=== PATIENT | male | born 1945 | race Hispanic/Latino ===

== ENCOUNTER 2019-05-31 15:00 | Inpatient (IN) | payer OTHER ==
[~2019-05-31] VITALS: Ht 177.8 cm; Wt 73.4 kg
[~2019-05-31 15:00] MED LIST: OMEP20TA25 PO
[2019-05-31 16:12] VITALS: BP 152/96
[2019-05-31] MEDS ORDERED: PHARMACY COMMUNICATION MISC SCH (16:15)
[2019-05-31] MEDS ORDERED: FEXO180T94 PO (16:27)
[2019-05-31] MEDS ORDERED: TELM80TA10 PO (16:27)
[2019-05-31] MEDS ORDERED: ACET1TAB18 PO (16:27)
[2019-05-31] MEDS ORDERED: BACL5TAB PO (16:27)
[2019-05-31] MEDS ORDERED: AMLO5TAB9 PO (16:27)
[2019-05-31] MEDS ORDERED: PREG150C46 PO (16:27)
[2019-05-31 16:34] LABS: BASOPHILS % (AUTO) 0.6 % (0.0-5.0); EOSINOPHILS % (AUTO) 1.1 % (0.0-8.0); HEMATOCRIT 47.8 % (42-54); LYMPHOCYTES % (AUTO) 27.7 % (21.0-51.0); MEAN CORPUSCULAR HEMOGLOBIN 31.2 pg (27.0-33.0); MEAN CORPUSCULAR HGB CONC 33.6 g/dL (32.0-36.0); MONOCYTES % (AUTO) 11.1 % (3.0-13.0); NEUTROPHILS % (AUTO) 59.5 % (40.0-77.0); PLATELET COUNT (AUTO) 202 K/uL (130-400); RED BLOOD CELL COUNT(AUTO) 5.14 MIL/uL (4.50-6.20); RED CELL DISTRIBUTION WIDTH 13.9 % (11.0-15.5); WHITE BLOOD COUNT (AUTO) 5.9 K/uL (4.8-10.8)
[2019-05-31 16:45] LABS: INR 0.96 (0.85-1.15); PROTHROMBIN TIME 10.1 SEC (9.6-11.6)
[2019-05-31 16:46] LABS: CREATININE 1.3 mg/dL (0.5-1.5); POTASSIUM 3.9 mmol/L (3.5-5.1)
[2019-05-31 16:48] LABS: APPEARANCE,URINE Clear (CLEAR); BILIRUBIN,URINE Negative (NEGATIVE); COLOR,URINE Yellow (YELLOW); GLUCOSE, URINE (UA) Negative (NEGATIVE); KETONES,URINE Negative (NEGATIVE); LEUKOCYTE ESTERASE ,URINE Negative (NEGATIVE); NITRATE,URINE Negative (NEGATIVE); OCCULT BLOOD,URINE Small (NEGATIVE); PROTEIN,URINE Negative (NEGATIVE)
[2019-05-31 17:05] LABS: BACTERIA,URINE Rare /HPF (None Seen); WBC,URINE 0-1 /HPF (0-1)
[2019-05-31 17:06] LABS: SQUAMOUS EPITHELIAL CELL,UR Rare /HPF (0-2)
--- NOTE | 2019-05-31 18:56 | NUR ---
UA INFORMED DR. BECKER OF ABNORMAL UA. NO ORDERS RECEIVED. PROCEED WITH PLANNED PROCEDURE.
[2019-06-03] VITALS (24 sets, daily range): BP systolic 98–148; BP diastolic 53–87
--- NOTE | 2019-06-03 09:15 | NUR ---
POTENTIAL FOR INFECTION: SHAVED LEFT HIP / LEFT UPPER LEG TO GROIN AREA PER CATHY VELASCO, FOLLOWED BY WIPING WITH MOIRA: 2% CHLORHEXIDINE GLUCONATE CLOTH PATIENTS PRE-OP SKIN PREP.
[2019-06-03] MEDS: CEFAZOLIN SODIUM 1 GM VIAL IVP SCH ×2 (09:30→14:15)
[2019-06-03] MEDS ORDERED: LACTATED RINGERS 1000ML 1,000 ML IV ONE (09:34)
[2019-06-03] MEDS ORDERED: ASPI-555 PO (10:03)
[2019-06-03] MEDS ORDERED: ACETAMINOPHEN EXTRA STRENGTH 500 MG TABLET ONE (13:02)
[2019-06-03] MEDS ORDERED: CELECOXIB 200 MG CAP ONE (13:02)
[2019-06-03] MEDS ORDERED: KETOROLAC TROMETHAMINE 15MG/ML ONE (13:02)
[2019-06-03] MEDS ORDERED: ROCURONIUM 10MG/1ML SYR 10 MG/ML ML ONE ×2 (13:46→15:11)
[2019-06-03] MEDS ORDERED: LIDOCAINE PF 2% 5ML ABBOJECT ONE (13:46)
[2019-06-03] MEDS ORDERED: PROPOFOL 10 MG/ML 20ML VIAL IV ONE (13:46)
[2019-06-03] MEDS ORDERED: MIDAZOLAM HCL 1 MG/ML 2ML VIAL ONE (13:46)
[2019-06-03] MEDS ORDERED: FENTANYL CITRATE PF 50 MCG/1 ML 5ML AMP IV ONE (13:46)
[2019-06-03] MEDS ORDERED: ROPIVACAINE 0.5% 5MG/ML 30ML IJ ONE (13:49)
[2019-06-03] MEDS ORDERED: EPHEDRINE SULFATE 50 MG/ML AMPULE ONE (13:57)
[2019-06-03] MEDS ORDERED: CEFAZOLIN SODIUM 1 GM VIAL ONE ×2 (13:58→19:12)
[2019-06-03] MEDS ORDERED: TRANEXAMIC ACID 1000MG/10ML ONE (13:58)
[2019-06-03] MEDS ORDERED: HETASTARCH IN 0.9 % NACL 500 ML IV ONE (14:14)
[2019-06-03] MEDS ORDERED: GLYCOPYRROLATE 1 MG/5 ML SYRINGE ONE (18:04)
[2019-06-03] MEDS ORDERED: NEOSTIGMINE 5MG/5ML SYR IV ONE (18:04)
[2019-06-03] MEDS ORDERED: LIDOCAINE HCL-MPF 1% 2ML VIAL IV PRN (19:00)
[2019-06-03] MEDS ORDERED: DiphenhydrAMINE HCL 50 MG/ML VIAL IVP PRN (19:00)
[2019-06-03] MEDS ORDERED: POTASSIUM CHLORIDE 20MEQ/100ML 100 ML IV PRN (19:00)
[2019-06-03] MEDS: ACETAMINOPHEN EXTRA STRENGTH 500 MG TABLET PO SCH (19:00)
[2019-06-03] MEDS ORDERED: CALCIUM CARBONATE 500 MG TABLET PO PRN (19:00)
[2019-06-03] MEDS ORDERED: POTASSIUM CHLORIDE 20 MEQ ERTAB PO PRN (19:00)
[2019-06-03] MEDS ORDERED: POTASSIUM CHLORIDE 10% ELIXIR 20 MEQ/15 ML UDCUP PO PRN (19:00)
[2019-06-03] MEDS ORDERED: TEMAZEPAM 15 MG CAPSULE PO PRN (19:00)
[2019-06-03] MEDS ORDERED: FERROUS FUMARATE 324 MG TABLET PO PRN (19:00)
[2019-06-03] MEDS ORDERED: ONDANSETRON HCL 4 MG/2 ML VIAL IVP PRN (19:00)
[2019-06-03] MEDS ORDERED: MEPERIDINE-PF 25 MG/ML SYG ONE (19:35)
[2019-06-03] MEDS: SODIUM CHLORIDE 0.9% 1000ML 1,000 ML IV SCH (20:44)
[2019-06-03] MEDS: FAMOTIDINE 20MG TAB 20 MG TAB PO SCH (20:47)
[2019-06-03] MEDS: CELECOXIB 200 MG CAP PO SCH (20:47)
[2019-06-03] MEDS: OXYCODONE HCL 5 MG TAB PO PRN (20:48)
[2019-06-03] MEDS: PREGABALIN 75 MG CAPSULE PO SCH (20:48)
[2019-06-03] MEDS: KETOROLAC TROMETHAMINE 15MG/ML IV PRN (21:47)
[2019-06-04 00:04] VITALS: BP 118/74
[2019-06-04] MEDS: CEFAZOLIN SODIUM 1 GM VIAL IVP SCH ×3 (03:22→19:45)
[2019-06-04] MEDS: ACETAMINOPHEN EXTRA STRENGTH 500 MG TABLET PO SCH ×3 (03:23→19:49)
[2019-06-04] MEDS: OXYCODONE HCL 5 MG TAB PO PRN ×5 (03:41→23:44)
--- NOTE | 2019-06-04 03:42 | NUR ---
DANGLE PATIENT ASSISTED TO EDGE OF BED TO DANGLE LEGS PER MD ORDER.
[2019-06-04 04:03] VITALS: BP 121/71
[2019-06-04 04:15] LABS: HEMATOCRIT 34.7 % (42-54); MEAN CORPUSCULAR HEMOGLOBIN 31.6 pg (27.0-33.0); MEAN CORPUSCULAR HGB CONC 34.2 g/dL (32.0-36.0); MEAN CORPUSCULAR VOLUME 92.4 fL (79-99); PLATELET COUNT (AUTO) 144 K/uL (130-400); RED BLOOD CELL COUNT(AUTO) 3.75 MIL/uL (4.50-6.20); RED CELL DISTRIBUTION WIDTH 13.9 % (11.0-15.5); WHITE BLOOD COUNT (AUTO) 5.8 K/uL (4.8-10.8)
[2019-06-04 04:32] LABS: CREATININE 1.1 mg/dL (0.5-1.5); POTASSIUM 4.1 mmol/L (3.5-5.1)
[2019-06-04] MEDS: SODIUM CHLORIDE 0.9% 1000ML 1,000 ML IV SCH ×2 (04:47→14:14)
[2019-06-04 07:53] VITALS: BP 127/83
[2019-06-04] MEDS: CHLORPHENIRAMINE PO SCH (09:00)
[2019-06-04] MEDS: [UNRECOGNIZED DRUG - OTHER] PO SCH (09:00)
[2019-06-04] MEDS: ACETAMINOPHEN PO SCH (09:00)
[2019-06-04] MEDS: FAMOTIDINE 20MG TAB 20 MG TAB PO SCH ×2 (09:19→19:49)
[2019-06-04] MEDS: POLYETHYLENE GLYCOL 3350 17 GM POWD.PACK PO SCH (09:19)
[2019-06-04] MEDS: LOSARTAN 100 MG TABLET PO SCH (09:19)
[2019-06-04] MEDS: CELECOXIB 200 MG CAP PO SCH ×2 (09:20→19:49)
[2019-06-04] MEDS: AMLODIPINE BESYLATE 5 MG TAB PO SCH (09:20)
[2019-06-04] MEDS: PANTOPRAZOLE SODIUM 40 MG TABLET.DR PO SCH (09:20)
[2019-06-04] MEDS: TAMSULOSIN HCL 0.4 MG CAP.ER.24H PO SCH (09:20)
[2019-06-04] MEDS: APIXABAN 5 MG TABLET PO SCH ×2 (09:20→19:49)
[2019-06-04] MEDS: BACLOFEN 10 MG TABLET PO SCH (09:20)
[2019-06-04] MEDS: CETIRIZINE HCL 5 MG TABLET PO SCH (09:21)
--- NOTE | 2019-06-04 10:00 | NUR ---
0949 had pt sign IM Letter.Faxed to [phone] and placed in chart under consent tab.
--- NOTE | 2019-06-04 10:00 | NUR ---
DCP CM met w/pt discussed DC plan. Pt is independent prior to surgery, lives at home alone, sister Luz Marina lives close by. Pt has a standard walker no wheels, shower chair. Denies any other equipments/services. Pt agreeable for short term placement rehab, ANGELINE signed for [facility]. DC plan to SNF. Faxed order, clinicals, PT, and PASRR, confirmation received. Spoke to Hillary w/[facility], will come eval pt. Pt pending ins auth and acceptance. Primary nurse aware. CM to cont to follow up. Addendum: 06/04/19 at 1057 by ABHIJIT MCDONALD LVN CM Amended: Links added.
[2019-06-04] MEDS: KETOROLAC TROMETHAMINE 15MG/ML IV PRN (10:31)
[2019-06-04 11:17] VITALS: BP 115/73
[2019-06-04] MEDS: TRAMADOL HCL 50 MG TABLET PO PRN (12:46)
[2019-06-04 16:19] VITALS: BP 141/80
[2019-06-04] MEDS: PREGABALIN 75 MG CAPSULE PO SCH (19:49)
[2019-06-04 20:06] VITALS: BP 137/85
[2019-06-05 00:06] VITALS: BP 92/63
[2019-06-05] MEDS: OXYCODONE HCL 5 MG TAB PO PRN ×3 (03:56→15:45)
[2019-06-05] MEDS: ACETAMINOPHEN EXTRA STRENGTH 500 MG TABLET PO SCH ×2 (03:56→10:13)
[2019-06-05] MEDS: CEFAZOLIN SODIUM 1 GM VIAL IVP SCH ×2 (03:58→12:00)
[2019-06-05 04:06] VITALS: BP 102/65
[2019-06-05 07:58] VITALS: BP 117/70
[2019-06-05] MEDS: ACETAMINOPHEN PO SCH (09:00)
[2019-06-05] MEDS: AMLODIPINE BESYLATE 5 MG TAB PO SCH (09:00)
[2019-06-05] MEDS: [UNRECOGNIZED DRUG - OTHER] PO SCH (09:00)
[2019-06-05] MEDS: CHLORPHENIRAMINE PO SCH (09:00)
--- NOTE | 2019-06-05 10:00 | NUR ---
CM Note: [facility] ins auth CM spoke to Hillary w/[facility], pt has ins auth. Pt safe to transfer via [facility] transport van. Primary nurse aware. CM to cont to follow up.
[2019-06-05] MEDS: LOSARTAN 100 MG TABLET PO SCH (10:05)
[2019-06-05] MEDS: CELECOXIB 200 MG CAP PO SCH (10:05)
[2019-06-05] MEDS: PANTOPRAZOLE SODIUM 40 MG TABLET.DR PO SCH (10:05)
[2019-06-05] MEDS: CETIRIZINE HCL 5 MG TABLET PO SCH (10:06)
[2019-06-05] MEDS: APIXABAN 5 MG TABLET PO SCH (10:06)
[2019-06-05] MEDS: TAMSULOSIN HCL 0.4 MG CAP.ER.24H PO SCH (10:06)
[2019-06-05] MEDS: FAMOTIDINE 20MG TAB 20 MG TAB PO SCH (10:07)
[2019-06-05] MEDS: POLYETHYLENE GLYCOL 3350 17 GM POWD.PACK PO SCH (10:08)
[2019-06-05] MEDS: BACLOFEN 10 MG TABLET PO SCH (10:12)
[2019-06-05 11:22] VITALS: BP 111/74
--- NOTE | 2019-06-05 12:10 | NUR ---
DR. BECKER CALLED MD TO INFORM PATIENT HAS BEEN ACCEPTED TO [facility]. NO ANSWER AT THIS TIME. WILL TRY TO CALL AGAIN LATER.
[2019-06-05] MEDS: TRAMADOL HCL 50 MG TABLET PO PRN (12:47)
[2019-06-05] MEDS ORDERED: APIX5TAB PO (14:47)
[2019-06-05] MEDS ORDERED: HYDR-4457 PO (14:47)
[2019-06-05 15:57] VITALS: BP 122/75
--- NOTE | 2019-06-05 16:35 | NUR ---
REPORT GIVEN TO [facility] STAFF NURSE AT 1635 PATIENT IS READY FOR MANAGER OF DATA BT SNF VAN, CHART COPY. MEDICATIONS RECONCILED SENT VIA FAX TO [facility]SING [facility] , FIDEL DRESSING CHANGED SECURED AND GREEN LIGHT FLASHING , DRESSING DUE TO BE CHANGE ON 06/10/19 RECEIVING NURSE AND PATIENT INSTRUCTED ON DRESSING CHANGE , FOLLOW-UP APPOINTMENT AND MEDICATION ( ELQUIS AND NARCO) WEIGHT BEARING TOLERATED WITH WALKER , MEDICATED FOR PAIN SCORE OF 4 PRIOR TO DISCHARGE . IV REMOVE WITH CATHETER INTACT AND SITE DRESSED. NO QUESTION OR CONCERN AT THIS TIME COPY OF DR BECKER GIVEN TO PATIENT AND NEW SCRIPT PLACE IN CHART COPY AND [facility] NURSE MADE AWARE. PATIENT WAITING FOR MANAGER OF DATA SISTER IN ROOM
[2019-06-06] MEDS ORDERED: BISACODYL 10 MG SUPP.RECT RC PRN (19:00)
== END 2019-06-05 17:44 | DRG 470 ==
LOC: EDSTATUS 15:00 → DAHIP 06-03 08:10 → 4AH 06-03 20:05
PROVIDERS: ADMIT Orthopaedic Surgery; ATTEND Orthopaedic Surgery
PROC: 0SRB0JZ Replacement of Left Hip Joint with Synthetic Substitute, Open Approach (ICD-10-PCS; principal; 2019-06-03 13:45)
PROC: 3E0T3BZ Introduction of Anesthetic Agent into Peripheral Nerves and Plexi, Percutaneous Approach (ICD-10-PCS; 2019-06-03 13:45)
DX: M87.852 Other osteonecrosis, left femur (principal); G89.29 Other chronic pain; D64.9 Anemia, unspecified; K40.90 Unilateral inguinal hernia, without obstruction or gangrene, not specified as recurrent; K57.90 Diverticulosis of intestine, part unspecified, without perforation or abscess without bleeding; I25.10 Atherosclerotic heart disease of native coronary artery without angina pectoris; R26.9 Unspecified abnormalities of gait and mobility; M21.70 Unequal limb length (acquired), unspecified site; K21.9 Gastro-esophageal reflux disease without esophagitis; N28.1 Cyst of kidney, acquired; M43.10 Spondylolisthesis, site unspecified; I10 Essential (primary) hypertension; Z82.49 Family history of ischemic heart disease and other diseases of the circulatory system; Z88.8 Allergy status to other drugs, medicaments and biological substances
CPT/HCPCS: 36415; 73503; 80048; 81001; 85025; 85027; 85610; 87641; 88304; 88311; 96374; 97039; C1776; G0378; J0690; J1885; J2001; J2175; J2250; J2704; J2710; J2795; J3010; J3490; J7030; J7120

== ENCOUNTER 2019-11-14 07:04 | Observation (INO) | payer OTHER ==
[2019-11-12 11:30] LABS: BASOPHILS % (AUTO) 0.6 % (0.0-5.0); EOSINOPHILS % (AUTO) 1.7 % (0.0-8.0); HEMATOCRIT 45.8 % (42-54); LYMPHOCYTES % (AUTO) 25.9 % (21.0-51.0); MEAN CORPUSCULAR HEMOGLOBIN 30.4 pg (27.0-33.0); MEAN CORPUSCULAR HGB CONC 33.6 g/dL (32.0-36.0); MEAN CORPUSCULAR VOLUME 90.3 fL (79-99); MONOCYTES % (AUTO) 10.2 % (3.0-13.0); NEUTROPHILS % (AUTO) 61.4 % (40.0-77.0); PLATELET COUNT (AUTO) 203 K/uL (130-400); RED BLOOD CELL COUNT(AUTO) 5.07 MIL/uL (4.50-6.20); RED CELL DISTRIBUTION WIDTH 13.8 % (11.0-15.5); WHITE BLOOD COUNT (AUTO) 4.8 K/uL (4.8-10.8)
[2019-11-12 11:32] LABS: APPEARANCE,URINE Clear (CLEAR); BILIRUBIN,URINE Negative (NEGATIVE); COLOR,URINE Yellow (YELLOW); GLUCOSE, URINE (UA) Negative (NEGATIVE); KETONES,URINE Negative (NEGATIVE); LEUKOCYTE ESTERASE ,URINE Trace (NEGATIVE); NITRATE,URINE Negative (NEGATIVE); OCCULT BLOOD,URINE Negative (NEGATIVE); PROTEIN,URINE Negative (NEGATIVE)
[2019-11-12 11:37] LABS: CREATININE 1.2 mg/dL (0.5-1.5); POTASSIUM 3.8 mmol/L (3.5-5.1)
[2019-11-12 11:53] LABS: INR 0.96 (0.85-1.15); PROTHROMBIN TIME 10.4 SEC (9.6-11.6)
[2019-11-12 12:31] LABS: BACTERIA,URINE Rare /HPF (None Seen); RBC,URINE 0-1 /HPF (0-1); SQUAMOUS EPITHELIAL CELL,UR Rare /HPF (0-2); WBC,URINE 0-1 /HPF (0-1)
[2019-11-12 14:55] VITALS: BP 151/80
--- NOTE | 2019-11-12 18:09 | NUR ---
UA INFORMED / EUGENIO OF ABNORMAL UA. ORDERS RECEIVED TO SEND URINE FOR CULTURE AND WILL REVIEW RESULTS ON AM OF PROCEDURE.
[2019-11-14] VITALS (22 sets, daily range): BP systolic 117–151; BP diastolic 64–100
[~2019-11-14] VITALS: Ht 179.1 cm; Wt 72.9 kg
[~2019-11-14 07:04] MED LIST changes: +ACET1TAB18 PO; +ACET325T51 PO; +AEC81 PO; +ALLEGRA PO; +AMLO5TAB9 PO; +CHOL100018 PO; +HYDR-4457 PO; +TELM80TA10 PO; +TRAZ-185 PO; +VITA100C24 PO; +VITAMIN B12 PO
[2019-11-14] MEDS ORDERED: LACTATED RINGERS 1000ML 1,000 ML IV ONE (07:40)
[2019-11-14] MEDS ORDERED: KETOROLAC TROMETHAMINE 15MG/ML ONE (08:10)
[2019-11-14] MEDS ORDERED: ACETAMINOPHEN EXTRA STRENGTH 500 MG TABLET ONE (08:10)
[2019-11-14] MEDS ORDERED: CELECOXIB 200 MG CAP ONE (08:11)
[2019-11-14] MEDS: CEFAZOLIN SODIUM 1 GM VIAL IVP ONE ×2 (08:17→10:52)
--- NOTE | 2019-11-14 08:44 | NUR ---
POTENTIAL FOR INFECTION: CLIPPED RIGHT HIP TO RT UPPER LEG AND GROIN AREA PER CATHY VELASCO, FOLLOWED BY WIPING WITH MOIRA: 2% CHLORHEXIDINE GLUCONATE CLOTH PATIENTS PRE-OP SKIN PREP.
[2019-11-14] MEDS ORDERED: CEFAZOLIN SODIUM 1 GM VIAL ONE (10:14)
[2019-11-14] MEDS ORDERED: TRANEXAMIC ACID 1000MG/10ML ONE ×2 (10:14→13:57)
[2019-11-14] MEDS ORDERED: MIDAZOLAM HCL 1 MG/ML 2ML VIAL ONE (10:19)
[2019-11-14] MEDS ORDERED: SUCCINYLCHOLINE 200MG/10ML SYR ONE (10:21)
[2019-11-14] MEDS ORDERED: PROPOFOL 10 MG/ML 20ML VIAL IV ONE (10:21)
[2019-11-14] MEDS ORDERED: ROCURONIUM 10MG/1ML SYR 10 MG/ML ML ONE ×3 (10:21→12:40)
[2019-11-14] MEDS ORDERED: ROPIVACAINE 0.5% 5MG/ML 30ML IJ ONE (10:41)
[2019-11-14] MEDS ORDERED: FENTANYL CITRATE PF 50 MCG/1 ML 2ML VIAL ONE (11:38)
[2019-11-14] MEDS ORDERED: CEFAZOLIN SODIUM 1 GM VIAL IRRIG ONE (11:41)
[2019-11-14] MEDS ORDERED: GLYCOPYRROLATE 1 MG/5 ML SYRINGE ONE (12:23)
[2019-11-14] MEDS ORDERED: NEOSTIGMINE 5MG/5ML SYR IV ONE (12:23)
[2019-11-14] MEDS ORDERED: ONDANSETRON HCL 4 MG/2 ML VIAL ONE (12:24)
[2019-11-14] MEDS ORDERED: DEXAMETHASONE SOD PHOSPHATE 10MG/ML 1ML VIAL ONE (12:24)
[2019-11-14] MEDS ORDERED: PHENYLEPHRINE HCL 10 MG/ML 1ML VIAL IV ONE (12:35)
[2019-11-14] MEDS ORDERED: POTASSIUM CHLORIDE 20MEQ/100ML 100 ML IV PRN (13:45)
[2019-11-14] MEDS ORDERED: CALCIUM CARBONATE 500 MG TABLET PO PRN (13:45)
[2019-11-14] MEDS ORDERED: ONDANSETRON HCL 4 MG/2 ML VIAL IVP PRN (13:45)
[2019-11-14] MEDS ORDERED: FERROUS FUMARATE 324 MG TABLET PO PRN (13:45)
[2019-11-14] MEDS ORDERED: TRAMADOL HCL 50 MG TABLET PO PRN (13:45)
[2019-11-14] MEDS ORDERED: POTASSIUM CHLORIDE 20 MEQ ERTAB PO PRN (13:45)
[2019-11-14] MEDS ORDERED: KETOROLAC TROMETHAMINE 15MG/ML IV PRN (13:45)
[2019-11-14] MEDS ORDERED: POTASSIUM CHLORIDE 10% ELIXIR 20 MEQ/15 ML UDCUP PO PRN (13:45)
[2019-11-14] MEDS ORDERED: LIDOCAINE HCL-MPF 1% 2ML VIAL IV PRN (13:45)
[2019-11-14] MEDS ORDERED: OXYCODONE HCL 5 MG TAB PO PRN (13:45)
[2019-11-14] MEDS ORDERED: DiphenhydrAMINE HCL 50 MG/ML VIAL IVP PRN (13:45)
[2019-11-14] MEDS ORDERED: MEPERIDINE-PF 25 MG/ML SYG ONE (14:17)
[2019-11-14] MEDS: SODIUM CHLORIDE 0.9% 1000ML 1,000 ML IV SCH ×2 (15:50→23:15)
[2019-11-14] MEDS: ACETAMINOPHEN EXTRA STRENGTH 500 MG TABLET PO SCH ×2 (15:51→22:00)
[2019-11-14] MEDS: OXYCODONE HCL 5 MG TAB PO PRN ×2 (15:52→23:27)
[2019-11-14] MEDS ORDERED: TRAZODONE HCL 50 MG TAB PO PRN (16:30)
--- NOTE | 2019-11-14 16:40 | NUR ---
DC PLAN VISITED WITH PATIENT. PATIENT LIVES ALONE. SISTER WILL BE HELPING AT HOME. PATIENT HAS WALKER AND BEDSIDE COMMODE. RECEIVES MEALS ON WHEELS. PATIENT WOULD LIKE [facility] INFO SENT TO [facility]) PENDING PT NOTES. Addendum: 11/14/19 at 1641 by CHARLIE CHAMPION RN CM Amended: Links added.
--- NOTE | 2019-11-14 17:18 | NUR ---
PT YELENAD AT BEDSIDE AND THEN I STOOD HIM FOR 1 MINUTE HE TOLERATED WELL, NO DIZZYNESS; HE WAS ABLE TO URINATE 200CC IN URINAL; THEN HELPED BACK TO BED.
[2019-11-14] MEDS: CEFAZOLIN SODIUM 1 GM VIAL IVP SCH (18:57)
[2019-11-14] MEDS: PREGABALIN 25 MG CAP PO SCH (19:44)
[2019-11-14] MEDS: ASPIRIN 81MG TAB.CHEW PO SCH (19:45)
[2019-11-14] MEDS: CELECOXIB 200 MG CAP PO SCH (19:45)
[2019-11-14] MEDS: HYDROMORPHONE 1 MG/1 ML AMP IVP PRN (22:00)
[2019-11-15] MEDS: HYDROMORPHONE 1 MG/1 ML AMP IVP PRN ×2 (03:06→04:50)
[2019-11-15] MEDS: CEFAZOLIN SODIUM 1 GM VIAL IVP SCH (03:06)
[2019-11-15 04:00] VITALS: BP 131/76
[2019-11-15 04:35] LABS: HEMATOCRIT 35.1 % (42-54); MEAN CORPUSCULAR HEMOGLOBIN 29.7 pg (27.0-33.0); MEAN CORPUSCULAR HGB CONC 32.8 g/dL (32.0-36.0); MEAN CORPUSCULAR VOLUME 90.7 fL (79-99); RED BLOOD CELL COUNT(AUTO) 3.87 MIL/uL (4.50-6.20); RED CELL DISTRIBUTION WIDTH 13.7 % (11.0-15.5); WHITE BLOOD COUNT (AUTO) 8.1 K/uL (4.8-10.8)
[2019-11-15 04:46] LABS: CREATININE 1.3 mg/dL (0.5-1.5); POTASSIUM 4.4 mmol/L (3.5-5.1)
[2019-11-15] MEDS: ACETAMINOPHEN EXTRA STRENGTH 500 MG TABLET PO SCH ×2 (04:50→13:58)
[2019-11-15 08:29] VITALS: BP 127/70
[2019-11-15] MEDS: CELECOXIB 200 MG CAP PO SCH (08:41)
[2019-11-15] MEDS: ASPIRIN 81MG TAB.CHEW PO SCH (08:42)
[2019-11-15] MEDS: PREGABALIN 25 MG CAP PO SCH (08:42)
[2019-11-15] MEDS ORDERED: PANTOPRAZOLE SODIUM 40 MG TABLET.DR PO SCH (09:00)
[2019-11-15] MEDS ORDERED: CYANOCOBALAMIN (VITAMIN B-12) 1,000 MCG TABLET PO SCH (09:00)
[2019-11-15] MEDS ORDERED: CETIRIZINE HCL 5 MG TABLET PO SCH (09:00)
[2019-11-15] MEDS ORDERED: AMLODIPINE BESYLATE 5 MG TAB PO SCH (09:00)
[2019-11-15] MEDS ORDERED: POLYETHYLENE GLYCOL 3350 17 GM POWD.PACK PO SCH (09:00)
[2019-11-15] MEDS ORDERED: [UNRECOGNIZED DRUG - OTHER] PO SCH (09:00)
[2019-11-15] MEDS ORDERED: **HM**(Cholecalciferol (Vitamin D3) (Vitamin D3) 25 MCG PO SCH (09:00)
[2019-11-15] MEDS ORDERED: CHLORPHENIRAMINE PO SCH (09:00)
[2019-11-15] MEDS ORDERED: ACETAMINOPHEN PO SCH (09:00)
[2019-11-15] MEDS ORDERED: LOSARTAN 100 MG TABLET PO SCH (09:00)
[2019-11-15] MEDS: OXYCODONE HCL 5 MG TAB PO PRN (09:28)
[2019-11-15 11:26] VITALS: BP 114/71
[2019-11-15] MEDS ORDERED: AEC81 PO (11:57)
[2019-11-15] MEDS ORDERED: HYDR-4457 PO (11:57)
--- NOTE | 2019-11-15 15:15 | NUR ---
INSTRUCTIONS DISCHARGE INSTRUCTIONS GIVEN TO PATIENT USING TEACH BACK. F/U APPOINTMENT WILL BE MADE BY PATIENT ON MONDAY DUE TO OFFICE BEING CLOSED TODAY. NEW PRESCRIPTIONS HAVE BEEN PLACED IN PACKET ALONG WITH ALL PRINTED INFORMATION AND MD INSTRUCTIONS. FIDEL DRESSING LEFT ALONE PER DR. BECKER. IT WILL BE REMOVED NEXT WEEK BY HOME HEALTH NURSE. REPORT HAS BEEN CALLED TO CHENG LEIVA AT [facility]. IV WAS REMOVED WITH TIP INTACT. DIRECT PRESSURE APPLIED UNTIL BLEEDING CONTROLLED THEN SITE COVERED WITH GAUZE AND SECURED WITH TAPE. NO QUESTIONS OR CONCERNS VOICED. PENDING RIDE HOME.
--- NOTE | 2019-11-15 15:44 | NUR ---
[facility] CALLED SAID THAT PATIENT IS ACCEPTED. LET NURSE AND MD KNOW. PATIENT ALREADY HAS EQUIPMENT AT HOME. Addendum: 11/15/19 at 1545 by CHARLIE CHAMPION RN CM Amended: Links added.
[2019-11-17] MEDS ORDERED: BISACODYL 10 MG SUPP.RECT RC PRN (13:45)
== END 2019-11-15 16:10 | disposition home health service (06) ==
LOC: DAH 07:04 → DAHIP 07:05 → 3DH 14:38
PROVIDERS: ADMIT Orthopaedic Surgery; ATTEND Orthopaedic Surgery
DX: M87.051 Idiopathic aseptic necrosis of right femur (principal); D64.9 Anemia, unspecified; N40.0 Benign prostatic hyperplasia without lower urinary tract symptoms; I10 Essential (primary) hypertension; Z96.642 Presence of left artificial hip joint; Z79.01 Long term (current) use of anticoagulants; K21.9 Gastro-esophageal reflux disease without esophagitis; G89.29 Other chronic pain
CPT/HCPCS: 27130; 36415 ×2; 64447; 73503; 80048 ×2; 81001; 85025; 85027; 85610; 86850; 86900; 86901; 87088; 87641; 93005; 96374; 96375; 96376; 97039 ×4; 97116; 97161; 97530; A4213; A4215; A4221; A4222; A4223; A4510; A4649 ×5; A4663; A4930; A5120; A9272; C1776; G0378 ×18; G8978; G8979; G8980; G8981; G8982; G8983; J0330; J0690 ×5; J1100; J1170 ×4; J1885 ×2; J2175; J2250; J2370; J2405 ×2; J2704; J2710; J2795; J3010; J3490 ×3; J7120

== ENCOUNTER 2023-05-15 08:08 | Emergency (ER) | payer MEDICARE, OTHER ==
[~2023-05-15] VITALS: Ht 177.8 cm; Wt 78.5 kg
[~2023-05-15 08:08] MED LIST changes: +AMLO-257 PO; -AMLO5TAB9 PO; +CHOL-34 PO; -CHOL100018 PO; +OMEP20TA20 PO; -OMEP20TA25 PO; -VITA100C24 PO; +VITA100C26 PO
[2023-05-15] MEDS ORDERED: ASPIRIN 325MG TAB PO ONE (09:00)
[2023-05-15] MEDS ORDERED: ACETAMINOPHEN 500 MG TABLET PO ONE (09:00)
[2023-05-15 09:08] LABS: BASOPHILS # (AUTO) 0.02 K/uL (0.00-0.20); BASOPHILS % (AUTO) 0.5 % (0.0-5.0); EOSINOPHILS # (AUTO) 0.14 K/uL (0.00-0.70); EOSINOPHILS % (AUTO) 3.6 % (0.0-8.0); HEMATOCRIT 46.2 % (42-54); IMMATURE GRANULOCYTE ABSOLUTE 0.03 K/uL (0-1); LYMPHOCYTES # (AUTO) 1.1 K/uL (1.0-4.8); LYMPHOCYTES % (AUTO) 27.3 % (21.0-51.0); MEAN CORPUSCULAR HGB CONC 32.3 g/dL (32.0-36.0); MEAN CORPUSCULAR VOLUME 83.8 fL (79-99); MONOCYTES # (AUTO) 0.4 K/uL (0.1-1.0); MONOCYTES % (AUTO) 9.4 % (3.0-13.0); NEUTROPHILS # (AUTO) 2.3 K/uL (1.8-7.7); NEUTROPHILS % (AUTO) 58.4 % (40.0-77.0); PLATELET COUNT (AUTO) 189 K/uL (130-400); RED BLOOD CELL COUNT(AUTO) 5.51 MIL/uL (4.50-6.20); RED CELL DISTRIBUTION WIDTH 15.5 % (11.0-15.5); WHITE BLOOD COUNT (AUTO) 3.9 K/uL (4.8-10.8)
[2023-05-15 09:33] LABS: CREATININE 1.5 mg/dL (0.5-1.5); POTASSIUM 3.5 mmol/L (3.5-5.1)
[2023-05-15] MEDS ORDERED: NAPR-1192 PO (11:02)
[2023-05-15 11:22] VITALS: BP 167/70; PULSE 76; RESP 18; O2SAT 99
== END 2023-05-15 11:29 | disposition home or self-care (01) ==
LOC: EDH 08:08
DX: R07.89 Other chest pain (principal); I10 Essential (primary) hypertension; K21.9 Gastro-esophageal reflux disease without esophagitis; Z79.82 Long term (current) use of aspirin; Z79.899 Other long term (current) drug therapy; Z98.890 Other specified postprocedural states; Z88.8 Allergy status to other drugs, medicaments and biological substances
CPT/HCPCS: 36415; 71046; 80048; 82550; 84484; 85025; 85378; 93005

== ENCOUNTER 2023-08-26 06:31 | Emergency (ER) | payer MEDICARE ==
[~2023-08-26] VITALS: Ht 177.8 cm; Wt 76.7 kg
[~2023-08-26 06:31] MED LIST changes: +NAPR-1192 PO
[2023-08-26 07:41] LABS: HEMATOCRIT 45.7 % (42-54); MEAN CORPUSCULAR HEMOGLOBIN 28.8 pg (27.0-33.0); MEAN CORPUSCULAR HGB CONC 33.9 g/dL (32.0-36.0); MEAN CORPUSCULAR VOLUME 84.8 fL (79-99); RED BLOOD CELL COUNT(AUTO) 5.39 MIL/uL (4.50-6.20); RED CELL DISTRIBUTION WIDTH 16.4 % (11.0-15.5); WHITE BLOOD COUNT (AUTO) 4.3 K/uL (4.8-10.8)
[2023-08-26 07:55] LABS: ALBUMIN 3.6 g/dL (3.5-5.0); BILIRUBIN,TOTAL 0.5 mg/dL (0.2-1.0); CREATININE 1.3 mg/dL (0.5-1.5); POTASSIUM 3.6 mmol/L (3.5-5.1); TOTAL PROTEIN, SERUM 7.4 g/dL (6.0-8.3)
[2023-08-26] MEDS: KETOROLAC 30MG VIAL (30MG/ML) IM ONE (08:30)
[2023-08-26] MEDS: DEXAMETHASONE SOD PHOSPHATE 4 MG/ML 1ML VIAL IM ONE (08:30)
[2023-08-26] MEDS ORDERED: NAPR-1180 PO (09:30)
[2023-08-26 09:49] VITALS: BP 137/68; PULSE 86; RESP 17; O2SAT 98
== END 2023-08-26 10:18 | disposition home or self-care (01) ==
LOC: EDH 06:31
DX: M75.52 Bursitis of left shoulder (principal); I10 Essential (primary) hypertension; K21.9 Gastro-esophageal reflux disease without esophagitis; Z79.82 Long term (current) use of aspirin; Z79.899 Other long term (current) drug therapy
CPT/HCPCS: 99285; 84484; 80053; 85027; 36415; 73060; 96372 ×2; 93005; J1100; J1885

== ENCOUNTER 2023-12-30 12:09 | Emergency (ER) | payer MEDICARE ==
[~2023-12-30] VITALS: Ht 177.8 cm; Wt 73.5 kg
[~2023-12-30 12:09] MED LIST changes: +NAPR-1180 PO
[2023-12-30 13:00] LABS: APPEARANCE,URINE CLEAR (CLEAR); BILIRUBIN,URINE NEGATIVE (NEGATIVE); COLOR,URINE LIGHT-YELLOW (YELLOW); GLUCOSE, URINE (UA) NEGATIVE (NEGATIVE); KETONES,URINE NEGATIVE (NEGATIVE); LEUKOCYTE ESTERASE ,URINE NEGATIVE Leu/uL (NEGATIVE); NITRATE,URINE NEGATIVE (NEGATIVE); OCCULT BLOOD,URINE NEGATIVE (NEGATIVE); PROTEIN,URINE NEGATIVE (NEGATIVE); UROBILINOGEN,URINE 0.2 mg/dL (0.2-1.0)
[2023-12-30 13:03] LABS: BASOPHILS # (AUTO) 0.04 K/uL (0.00-0.20); BASOPHILS % (AUTO) 0.9 % (0.0-5.0); EOSINOPHILS # (AUTO) 0.04 K/uL (0.00-0.70); EOSINOPHILS % (AUTO) 0.9 % (0.0-8.0); HEMATOCRIT 45.8 % (42-54); IMMATURE GRANULOCYTE ABSOLUTE 0.02 K/uL (0-1); LYMPHOCYTES % (AUTO) 21.5 % (21.0-51.0); MEAN CORPUSCULAR HGB CONC 34.5 g/dL (32.0-36.0); MEAN CORPUSCULAR VOLUME 87.1 fL (79-99); MONOCYTES # (AUTO) 0.4 K/uL (0.1-1.0); MONOCYTES % (AUTO) 9.6 % (3.0-13.0); NEUTROPHILS % (AUTO) 66.7 % (40.0-77.0); PLATELET COUNT (AUTO) 177 K/uL (130-400); RED BLOOD CELL COUNT(AUTO) 5.26 MIL/uL (4.50-6.20); RED CELL DISTRIBUTION WIDTH 14.5 % (11.0-15.5); WHITE BLOOD COUNT (AUTO) 4.5 K/uL (4.8-10.8)
[2023-12-30 13:06] LABS: ADD UA MICROSCOPIC NO
[2023-12-30 13:16] LABS: CREATININE 1.3 mg/dL (0.5-1.3); POTASSIUM 3.6 mmol/L (3.5-5.1)
[2023-12-30 13:19] LABS: SARS-CoV-2, RNA, NAAT NEGATIVE SARS CoV-2 (NEGATIVE)
[2023-12-30 13:22] LABS: INR <= 0.93 (0.85-1.15); PROTHROMBIN TIME 10.8 SEC (9.6-11.6)
[2023-12-30 13:23] LABS: B-TYPE NATRIURETIC PEPTIDE 19 pg/mL (0-100)
[2023-12-30 13:23] LABS: INFLUENZA TYPE A Negative For Type A (NEGATIVE); INFLUENZA TYPE B Negative For Type B (NEGATIVE)
[2023-12-30 14:54] VITALS: BP 140/93; PULSE 65; RESP 17; O2SAT 98
== END 2023-12-30 14:55 | disposition home or self-care (01) ==
LOC: EDH 12:09
DX: F41.9 Anxiety disorder, unspecified (principal); I11.0 Hypertensive heart disease with heart failure; Z79.899 Other long term (current) drug therapy; Z20.822 Contact with and (suspected) exposure to COVID-19; Z86.2 Personal history of diseases of the blood and blood-forming organs and certain disorders involving the immune mechanism
CPT/HCPCS: 36415; 71045; 80048; 81003; 83880; 84484; 85025; 85610; 87635; 87804; 93005

== ENCOUNTER 2024-08-31 20:18 | Emergency (ER) | payer MEDICARE ==
[~2024-08-31] VITALS: Ht 177.8 cm; Wt 74.4 kg
[~2024-08-31 20:18] MED LIST changes: +ACET-3859 PO; -ACET325T51 PO
--- NOTE | 2024-08-31 21:15 | HMCIMG ---
CT HEAD/BRAIN W/O CONTRAST INDICATION: headache TECHNIQUE: CT HEAD/BRAIN W/O CONTRAST. CT was performed with one or more of the following dose reduction techniques: Automated exposure control, adjustment of the mA and/or kV according to the patient's size, or use of the iterative reconstruction technique. Comparison: None FINDINGS: Cerebral atrophy seen. Nonspecific periventricular and subcortical white matters changes are noted likely representing small vessel ischemic changes. No midline shift or herniation. No extra axial collection. No acute intracranial bleed. The visualized paranasal sinuses and mastoid air cells are normally aerated. IMPRESSION: Diffuse atrophy. No acute intracranial bleed is seen. Nonspecific white matter changes
--- NOTE | 2024-08-31 21:23 | ERN ---
ED Note History of Present Illness Stated Complaint: HEADACHES Chief Complaint: Headache Time Seen by MD: 20:28 Time Seen by Midlevel: 20:28 Dictation: The patient is a 78-year-old male with a history of hypertension who presents to the emergency department with temporal headache, nasal congestion onset today. Patient denies any head trauma, denies any vomiting, denies any use of blood thinners. Patient reports she was seen by his primary doctor yesterday was diagnosed with anxiety and was giving escitalopram. Denies any fevers, cough. Allergies: Coded Allergies: No Known Drug Allergies (Verified Allergy, Unknown, 11/14/19) Home Meds Active Scripts Naproxen (Naprosyn) 500 Mg Tablet, 500 MG PO BIDPC PRN for PAIN for 10 Days, #20 TAB 0 Refills Prov:YAQUELIN GREEN MD 08/26/23 Naproxen (Naproxen) 375 Mg Tablet, 375 MG PO BID for 10 Days, #20 TAB 0 Refills Prov:TERRI ACOSTA Sr., MD 05/15/23 Hydrocodone/Acetaminophen ([place] 5-325 Tablet) 1 Each Tablet, 1-2 EACH PO Q6HPRN PRN for pain, #60 TAB Prov:BRETT BECKER MD 11/15/19 Aspirin (ASPIRIN 81 MG ECTAB) 81 Mg Ectab, 81 MG PO BID, #60 TAB.EC Prov:BRETT BECKER MD 11/15/19 Hydrocodone/Acetaminophen ([place] 5-325 Tablet) 1 Each Tablet, 1-2 EACH PO Q6HPRN PRN for PAIN, #60 TAB Prov:BRETT BECKER MD 06/05/19 Reported Medications Cholecalciferol (Vitamin D3) (Vitamin D3) 25 Mcg Tablet, 25 MCG PO DAILY, TAB 11/13/19 [Vitamin B12] No Conflict Check, 1000 MCG PO DAILY 11/13/19 Vitamin E (Dl,Tocopheryl Acet) (Vitamin E) 100 Unit Capsule, 100 UNIT PO DAILY, CAP 11/13/19 Acetaminophen (Acetaminophen) 325 Mg Tablet, 325 MG PO BID PRN for PAIN LEVEL 2 TO 5, TAB 11/13/19 [Nadia] No Conflict Check, 10 MG PO DAILY 11/13/19 Trazodone HCl (Trazodone HCl) 50 Mg Tablet, 25 MG PO HSPRN PRN for SLEEP, TAB 11/13/19 Acetaminophen/Chlorpheniramine (Coricidin Hbp Cold & Flu Tab) 1 Each Tablet, 1 EACH PO DAILY, TAB 05/31/19 Amlodipine Besylate (Amlodipine Besylate) 5 Mg Tablet, 5 MG PO DAILY, TAB 05/31/19 Telmisartan (Telmisartan) 80 Mg Tablet, 80 MG PO DAILY, TAB 05/31/19 Omeprazole (Omeprazole) 20 Mg Tablet.dr, 20 MG PO DAILY, TAB 02/17/17 Past Medical History Past Medical History: Hypertension, Other Additional Past Medical Hx: BACK PAIN, SINUS PROBLEMS Surgical History: Other Surgical History Other: BILATERAL HIP SX Social History: Negative RN Note Reviewed/Agreed w/PFSH: Yes Review of System Dictation Constitutional: Negative for fever,chills, and weight loss Eyes: Negative for injury, pain,redness, and discharge ENT: Negative for injury,pain or swelling Cardiovascular: Negative for chest pain, palpitations, and edema Respiratory: Negative for shortness of breath, cough, and wheezing, Abdomen/GI: Negative for abdominal pain, nausea, vomiting, diarrhea, and constipation Back: Negative for injury and pain : Negative for injury, bleeding and discharge MS/Extremity: Negative for injury and deformity Skin: Negative for rash, and discoloration Neuro: Negative for weakness, numbness, tingling, and seizure positive for headache Psych: Negative for suicide ideation, homicidal ideation, and hallucinations Initial Vital Sign VS Vital Signs Date Time Temp Pulse Resp B/P (MAP) Pulse Ox O2 Delivery O2 Flow Rate FiO2 08/31/24 20:29 98.6 78 18 180/90 98 Room Air 0 Physical Exam Dictation Vital Signs reviewed General Appearance: Alert, oriented x 3, no acute distress, well developed, nourished. Head and Face: non-traumatic. Eyes: PERRL, pink conjunctivas, eyelid no trauma, anterior chamber with arcus senilis. Ears: Pinnas intact and no signs of trauma or erythema ear canals clear and no discharge TM no erythema Nose: No discharge, no bleeding. Oropharynx: Mouth normal, tongue pink. pharynx clear,no erythema, tonsils no exudates, no abscesses noted, mucous membrane moist Neck: Supple, non-tender, no thyromegaly, no masses, no JVD, no bruits Breast:Deferred Chest:No tenderness, no crepitus, no paradoxical movement, no retractions Lungs:Clear, well-ventilated, symmetric, no rales, no wheezing, no rhonchi, no stridor, good breath sounds bilaterally Heart: Regular rate, regular rhythm, no murmur, no gallops Vascular: no peripheral edema, Abdomen: Soft, positive bowel sounds, nondistended, no guarding, nontender, no rebound, no masses no hepatomegaly, no splenomegaly, no Clement's sign, no hernias. Rectal: Deferred Genital: Deferred Neurological: Normal speech, motor function intact, sensory function intact , upper extremities equal and strength, lower extremities equal and strength Musculoskeletal: Neck nontender, full range of motion, back nontender, full range of motion, Extremities: nontender, full range of motion Skin: Color pink, dry, no turgor, no rash, no lacerations, no abrasions, no contusions. Lymphatic: Deferred Results (Laboratory/Radiology) Laboratory/Radiology Laboratory Tests Test 08/31/24 21:59 08/31/24 22:45 White Blood Count 6.4 K/uL (4.8-10.8) Red Blood Count 5.21 MIL/uL (4.50-6.20) Hemoglobin 14.9 g/dL (14.0-18.0) Hematocrit 45.9 % (42-54) Mean Corpuscular Volume 88.1 fL (79-99) Mean Corpuscular Hemoglobin 28.6 pg (27.0-33.0) Mean Corpuscular Hemoglobin Concent 32.5 g/dL (32.0-36.0) Red Cell Distribution Width 14.5 % (11.0-15.5) Platelet Count 177 K/uL (130-400) Mean Platelet Volume 10.3 fL (7.5-10.5) Immature Granulocyte % (Auto) 0.3 % (0-1) Neutrophils (%) (Auto) 59.3 % (40.0-77.0) Lymphocytes (%) (Auto) 25.9 % (21.0-51.0) Monocytes (%) (Auto) 11.9 % (3.0-13.0) Eosinophils (%) (Auto) 2.0 % (0.0-8.0) Basophils (%) (Auto) 0.6 % (0.0-5.0) Neutrophils # (Auto) 3.8 K/uL (1.8-7.7) Lymphocytes # (Auto) 1.7 K/uL (1.0-4.8) Monocytes # (Auto) 0.8 K/uL (0.1-1.0) Eosinophils # (Auto) 0.13 K/uL (0.00-0.70) Basophils # (Auto) 0.04 K/uL (0.00-0.20) Absolute Immature Granulocyte (auto 0.02 K/uL (0-1) Nucleated Red Blood Cells 0.0 % (0.0-0.19) Sodium Level 141 mmol/L (136-145) Potassium Level 4.2 mmol/L (3.5-5.1) Chloride Level 107 mmol/L (101-111) Carbon Dioxide Level 27 mmol/L (21-32) Blood Urea Nitrogen 21 mg/dL (7-18) H Creatinine 1.6 mg/dL (0.5-1.3) H Glomerular Filtration Rate Calc 44 mL/min (>90) Random Glucose 97 mg/dL (70-105) Total Calcium 9.5 mg/dL (8.5-10.1) Influenza Type A Antigen Negative For Type A Influenza Type B Antigen Negative For Type B SARS-CoV-2 Antigen (Rapid) PRESUMPTIVE NEGATIVE REASON: headache ORDERING PHYSICIAN: NEYMAR MANRIQUE PROCEDURE: HEAD WO - CT HEAD/BRAIN W/O CONTRAST CT HEAD/BRAIN W/O CONTRAST INDICATION: headache TECHNIQUE: CT HEAD/BRAIN W/O CONTRAST. CT was performed with one or more of the following dose reduction techniques: Automated exposure control, adjustment of the mA and/or kV according to the patient's size, or use of the iterative reconstruction technique. Comparison: None FINDINGS: Cerebral atrophy seen. Nonspecific periventricular and subcortical white matters changes are noted likely representing small vessel ischemic changes. No midline shift or herniation. No extra axial collection. No acute intracranial bleed. The visualized paranasal sinuses and mastoid air cells are normally aerated. IMPRESSION: Diffuse atrophy. No acute intracranial bleed is seen. Nonspecific white matter changes Labs Reviewed?: Yes ED Course ED Course Orders Procedure Category Date Status Time Cbc With Differential LAB 08/31/24 Complete 20:43 0.9%Nacl 1000ml (Ns PHA 08/31/24 In Process 1000ml) 21:00 Acetaminophen 325 Tab PHA 08/31/24 Complete (Tylenol 325mg Tab 21:00 Basic Metabolic Panel LAB 08/31/24 Complete 20:43 Ct Head/Brain W/O CT 08/31/24 Resulted Contrast 20:43 Covid19 (Sars Antigen LAB 08/31/24 Complete Rapid) 20:43 Influenza Type A & B, LAB 08/31/24 Complete Rapid 20:43 Current Medications Medications (Trade) Dose Ordered Sig/Ney Route PRN Reason Start Time Stop Time Status Last Admin Dose Admin Acetaminophen (TYLenol 325MG TAB) 650 mg ONCE ONCE PO 08/31/24 21:00 08/31/24 21:01 DC 08/31/24 22:48 Sodium Chloride 1,000 ml @ 125 mls/hr ONCE ONCE IV 08/31/24 21:00 09/01/24 04:59 08/31/24 23:12 Vital Signs Date Time Temp Pulse Resp B/P (MAP) Pulse Ox O2 Delivery O2 Flow Rate FiO2 08/31/24 20:29 98.6 78 18 180/90 98 Room Air 0 Medical Decision Making MDM The patient is a 78-year-old male with a history of hypertension who presents to the emergency department with temporal headache, nasal congestion onset today. Patient denies any head trauma, denies any vomiting, denies any use of blood thinners. Patient reports she was seen by his primary doctor yesterday was diagnosed with anxiety and was giving escitalopram. Denies any fevers, cough. CBC showed no leukocytosis, no anemia, chemistry showed no electrolyte imbalance, creatinine of 1.6, GFR 44slightly worsened previous visits. Patient given a L of fluids in ER. CT showed no acute intracranial bleeding. Patient in no acute distress, continues neurologically intact. Nontoxic appearance we will be discharged to follow up with PCP. Labs and imaging discussed with the patient who agrees to be discharged. Differential diagnosis: Headache, dehydration, electrolyte imbalance, intracerebral hemorrhage Need for hospitalization: Patient does not meet criteria for hospitalization. There are no social concerns with this patient. DX & DISP Disposition: Discharge Departure Impression: Primary Impression: Headache Condition: Stable Additional Instructions: FOLLOW-UP WITH PRIMARY CARE PROVIDER IN 1 TO 2 DAYS. TAKE MEDICATIONS DIRECTED HERE IN THE EMERGENCY ROOM. OKAY TO CONTINUE HOME MEDICATIONS UNLESS OTHERWISE DISCUSSED DURING YOUR VISIT IN THE EMERGENCY ROOM TODAY. RETURN TO YOUR NEAREST EMERGENCY ROOM IF SYMPTOMS WORSEN OR IF THERE IS NO IMPROVEMENT. CALL 911 IF YOU NEED IMMEDIATE ASSISTANCE. TAKE TYLENOL OR MOTRIN [id number] NEEDED AND IF NO CONTRAINDICATIONS ARE PRESENT. INCREASE ORAL HYDRATION. A WOUND CULTURE OR URINE CULTURE WAS ORDERED HERE IN THE EMERGENCY ROOM DEPARTMENT PLEASE FOLLOW-UP WITH PRIMARY CARE PROVIDER AND ADVISE THEM TO GET REPEAT PORTS FROM OUR FACILITY. IF YOU HAD ANY AJ WRAP/SPLINTS THAT WERE APPLIED HERE, PLEASE DO NOT REMOVE THEM UNTIL YOU SEE YOUR PRIMARY CARE OR SPECIALTY. Referrals: TIFFANIE REYES MD (PCP) Time of Disposition: 00:10 I have reviewed the case, and I agree with, Diagnosis and Plan NEYMAR MANRIQUE SUPERVISOR IN CHARGE Aug 31, 2024 21:23
[2024-08-31 22:18] LABS: BASOPHILS # (AUTO) 0.04 K/uL (0.00-0.20); BASOPHILS % (AUTO) 0.6 % (0.0-5.0); EOSINOPHILS # (AUTO) 0.13 K/uL (0.00-0.70); HEMATOCRIT 45.9 % (42-54); IMMATURE GRANULOCYTE ABSOLUTE 0.02 K/uL (0-1); LYMPHOCYTES # (AUTO) 1.7 K/uL (1.0-4.8); LYMPHOCYTES % (AUTO) 25.9 % (21.0-51.0); MEAN CORPUSCULAR HEMOGLOBIN 28.6 pg (27.0-33.0); MEAN CORPUSCULAR HGB CONC 32.5 g/dL (32.0-36.0); MEAN CORPUSCULAR VOLUME 88.1 fL (79-99); MONOCYTES # (AUTO) 0.8 K/uL (0.1-1.0); MONOCYTES % (AUTO) 11.9 % (3.0-13.0); NEUTROPHILS # (AUTO) 3.8 K/uL (1.8-7.7); NEUTROPHILS % (AUTO) 59.3 % (40.0-77.0); PLATELET COUNT (AUTO) 177 K/uL (130-400); RED BLOOD CELL COUNT(AUTO) 5.21 MIL/uL (4.50-6.20); RED CELL DISTRIBUTION WIDTH 14.5 % (11.0-15.5); WHITE BLOOD COUNT (AUTO) 6.4 K/uL (4.8-10.8)
[2024-08-31 22:30] LABS: CREATININE 1.6 mg/dL (0.5-1.3); POTASSIUM 4.2 mmol/L (3.5-5.1)
[2024-08-31] MEDS: acetaMINOPHEN 325 MG TAB PO ONE (22:48)
[2024-08-31] MEDS: 0.9%NACL 1000ML 1,000 ML IV ONE (23:12)
[2024-08-31 23:15] LABS: COVID19 (SARS ANTIGEN RAPID) PRESUMPTIVE NEGATIVE (NEGATIVE); INFLUENZA TYPE A Negative For Type A (NEGATIVE); INFLUENZA TYPE B Negative For Type B (NEGATIVE)
[2024-09-01 00:16] VITALS: BP 148/74; PULSE 68; RESP 18; TEMP 98.6; O2SAT 98
== END 2024-09-01 00:17 | disposition home or self-care (01) ==
LOC: EDH 20:21
DX: R51.9 Headache, unspecified (principal); I10 Essential (primary) hypertension; Z79.82 Long term (current) use of aspirin; Z79.899 Other long term (current) drug therapy; Z20.822 Contact with and (suspected) exposure to COVID-19
CPT/HCPCS: 99284; 96360; 70450; 87426; 80048; 85025; 87804 ×2; 36415; J7030

== ENCOUNTER 2024-10-11 15:57 | Emergency (ER) | payer MEDICARE ==
[~2024-10-11] VITALS: Ht 177.8 cm; Wt 74.8 kg
--- NOTE | 2024-10-11 16:03 | NUR ---
PT STATES THAT DOG BELONGS TO FAMILY FRIEND AND IS VERY FAMILAR WITH DOG, REFUSED NOTIFICATION/REPORTING TO ANIMAL CONTROL/POLICE DEPARTMENT
[2024-10-11] MEDS ORDERED: AMOX1TAB16 PO (16:06)
[2024-10-11] MEDS ORDERED: MUPI22O TP (16:06)
--- NOTE | 2024-10-11 16:07 | ERN ---
ED Note History of Present Illness Stated Complaint: DOG BITE Chief Complaint: Animal Bite Time Seen by MD: 15:59 Dictation: PATIENT IS A 79-YEAR-OLD MALE HERE WITH DOG BITE TO RIGHT HAND WHILE HE WAS AT HIS FRIEND'S HOUSE. STATES THE DOG IS VACCINATED AND IS WELL KNOWN TO THE PATIENT, STATES DOG BIT HIM WITHOUT PROVOCATION. TETANUS SHOT IS UNKNOWN. NEUROVASCULAR CMS INTACT TO RIGHT HAND NO REPAIRS REQUIRED. PATIENT HAS REQUESTED THAT WE DO NOT REPORT ANIMAL TO LAW ENFORCEMENT DUE TO THAT IT IS A FRIEND'S DOG. Allergies: Coded Allergies: No Known Drug Allergies (Verified Allergy, Unknown, 11/14/19) Home Meds Active Scripts Naproxen (Naprosyn) 500 Mg Tablet, 500 MG PO BIDPC PRN for PAIN for 10 Days, #20 TAB 0 Refills Prov:YAQUELIN GREEN MD 08/26/23 Naproxen (Naproxen) 375 Mg Tablet, 375 MG PO BID for 10 Days, #20 TAB 0 Refills Prov:TERRI ACOSTA Sr., MD 05/15/23 Hydrocodone/Acetaminophen ([place] 5-325 Tablet) 1 Each Tablet, 1-2 EACH PO Q6HPRN PRN for pain, #60 TAB Prov:BRETT BECKER MD 11/15/19 Aspirin (ASPIRIN 81 MG ECTAB) 81 Mg Ectab, 81 MG PO BID, #60 TAB.EC Prov:BRETT BECKER MD 11/15/19 Hydrocodone/Acetaminophen ([place] 5-325 Tablet) 1 Each Tablet, 1-2 EACH PO Q6HPRN PRN for PAIN, #60 TAB Prov:BRETT BECKER MD 06/05/19 Reported Medications Cholecalciferol (Vitamin D3) (Vitamin D3) 25 Mcg Tablet, 25 MCG PO DAILY, TAB 11/13/19 [Vitamin B12] No Conflict Check, 1000 MCG PO DAILY 11/13/19 Vitamin E (Dl,Tocopheryl Acet) (Vitamin E) 100 Unit Capsule, 100 UNIT PO DAILY, CAP 11/13/19 Acetaminophen (Acetaminophen) 325 Mg Tablet, 325 MG PO BID PRN for PAIN LEVEL 2 TO 5, TAB 11/13/19 [Nadia] No Conflict Check, 10 MG PO DAILY 11/13/19 Trazodone HCl (Trazodone HCl) 50 Mg Tablet, 25 MG PO HSPRN PRN for SLEEP, TAB 11/13/19 Acetaminophen/Chlorpheniramine (Coricidin Hbp Cold & Flu Tab) 1 Each Tablet, 1 EACH PO DAILY, TAB 05/31/19 Amlodipine Besylate (Amlodipine Besylate) 5 Mg Tablet, 5 MG PO DAILY, TAB 05/31/19 Telmisartan (Telmisartan) 80 Mg Tablet, 80 MG PO DAILY, TAB 05/31/19 Omeprazole (Omeprazole) 20 Mg Tablet.dr, 20 MG PO DAILY, TAB 02/17/17 Past Medical History Past Medical History: Hypertension, Other Additional Past Medical Hx: BACK PAIN, SINUS PROBLEMS Surgical History: Other Surgical History Other: BILATERAL HIP SX Social History: Negative RN Note Reviewed/Agreed w/PFSH: Yes Review of System Dictation CONSTITUTIONAL: NEGATIVE EXCEPT FOR HPI HEAD/FACE: NEGATIVE EXCEPT FOR HPI EENT: NEGATIVE EXCEPT FOR HPI RESPIRATORY: NEGATIVE EXCEPT FOR HPI GASTROINTESTINAL/ABDOMINAL: NEGATIVE EXCEPT FOR HPI GENITOURINARY: NEGATIVE EXCEPT FOR HPI MUSCULOSKELETAL: NEGATIVE EXCEPT FOR HPI MULTIPLE PUNCTURE WOUNDS TO RIGHT THUMB AND THENAR INTEGUMENTARY: NEGATIVE EXCEPT FOR HPI NEUROLOGICAL/PSYCH: NEGATIVE EXCEPT FOR HPI HEMATOLOGIC/LYMPHATIC: NEGATIVE EXCEPT FOR HPI ALL SYSTEMS NEGATIVE, EXCEPT NOTED ABOVE. 13 POINT REVIEW OF SYSTEMS ASSESSED AND ALL NEGATIVE EXCEPT FOR ABOVE. Physical Exam Dictation VITAL SIGNS REVIEWED GENERAL APPEARANCE: ALERT, ORIENTED X 3, MILD ACUTE DISTRESS, WELL DEVELOPED, NOURISHED. HEAD AND FACE: NON-TRAUMATIC. EYES: PERRL, PINK CONJUNCTIVAS, EYELID NO TRAUMA, ANTERIOR CHAMBER WITH ARCUS SENILIS. EARS: PINNAS INTACT AND NO SIGNS OF TRAUMA OR ERYTHEMA EAR CANALS CLEAR AND NO DISCHARGE TM NO ERYTHEMA NOSE: NO DISCHARGE, NO BLEEDING. OROPHARYNX: MOUTH NORMAL, TONGUE PINK, PHARYNX CLEAR,NO ERYTHEMA, TONSILS NO EXUDATES, NO ABSCESSES NOTED, MUCOUS MEMBRANE MOIST NECK: SUPPLE, NON-TENDER, NO THYROMEGALY, NO MASSES, NO JVD, NO BRUITS BREAST:DEFERRED CHEST:NO TENDERNESS, NO CREPITUS, NO PARADOXICAL MOVEMENT, NO RETRACTIONS LUNGS:CLEAR, WELL-VENTILATED, SYMMETRIC, NO RALES, NO WHEEZING, NO RHONCHI, NO STRIDOR, GOOD BREATH SOUNDS BILATERALLY HEART: REGULAR RATE, REGULAR RHYTHM, NO MURMUR, NO GALLOPS VASCULAR: NO PERIPHERAL EDEMA, ABDOMEN: SOFT, POSITIVE BOWEL SOUNDS, NONDISTENDED, NO GUARDING, NONTENDER, NO REBOUND, RECTAL: DEFERRED GENITAL: DEFERRED NEUROLOGICAL: NORMAL SPEECH, MOTOR FUNCTION INTACT, SENSORY FUNCTION INTACT MUSCULOSKELETAL: NECK NONTENDER, FULL RANGE OF MOTION, BACK NONTENDER, FULL RANGE OF MOTION, EXTREMITIES: NONTENDER, FULL RANGE OF MOTION SKIN: COLOR PINK, DRY, MULTIPLE PUNCTURE WOUNDS TO RIGHT THUMB AND THENAR. RANGE OF MOTION. NO REPAIRS REQUIRED NEUROVASCULAR CMS INTACT TO THUMB. LYMPHATIC: DEFERRED Results (Laboratory/Radiology) Labs Reviewed?: Yes ED Course ED Course Orders Procedure Category Date Status Time Tetanus,Diphtheria PHA 10/11/24 Verified Tox [Adult] (Diphther 16:30 Neomy PHA 10/11/24 Verified Sulf/Bacitra/Polymyxin 16:30 Acetaminophen 500mg PHA 10/11/24 Verified Tab (Tylenol 500mg T 16:30 Amox/Clav 875/125mg PHA 10/11/24 Verified Tab (Augmentin 875-1 16:30 1602/PATIENT LOADED WITH THE AUGMENTIN, GIVEN TETANUS UPDATE AND DRESSING WAS APPLIED TO WOUNDS. Medical Decision Making MDM MEDICAL DECISION-MAKING BASED ON EMPIRIC TREATMENT FOR DOG BITE TO INCLUDE TETANUS UPDATE PATIENT LOADED WITH A AUGMENTIN 875 DRESSING APPLIED TO HIM WITH NO REPAIRS REQUIRED TWO PUNCTURE WOUNDS. PATIENT HAS REQUESTED NO REPORT TO LAW ENFORCEMENT DUE TO BELONGS TO A FRIEND DX & DISP Disposition: Discharge Departure Impression: Primary Impression: Dog bite of right hand Additional Impression: Bite wound of right hand Condition: Stable Scripts Mupirocin (Bactroban 2% Oint) 2 % Oint 1 APPL TP TID for 5 Days, #15 GM 0 Refills apply to affected area(s) Prov: LEOBARDO MEEKS NP 10/11/24 Amoxicillin/Potassium Clav (Amox Tr-K Clv 875-125 mg Tab) 875 Mg-125 Mg Tablet 1 EACH PO BID for 7 Days, #14 TAB 0 Refills Prov: LEOBARDO MEEKS NP 10/11/24 Additional Instructions: FOLLOW-UP WITH PRIMARY CARE PROVIDER IN 1 TO 2 DAYS. TAKE MEDICATIONS DIRECTED HERE IN THE EMERGENCY ROOM. OKAY TO CONTINUE HOME MEDICATIONS UNLESS OTHERWISE DISCUSSED DURING YOUR VISIT IN THE EMERGENCY ROOM TODAY. RETURN TO YOUR NEAREST EMERGENCY ROOM IF SYMPTOMS WORSEN OR IF THERE IS NO IMPROVEMENT. CALL 911 IF YOU NEED IMMEDIATE ASSISTANCE. TAKE TYLENOL OR MOTRIN [id number] NEEDED AND IF NO CONTRAINDICATIONS ARE PRESENT. INCREASE ORAL HYDRATION. A WOUND CULTURE OR URINE CULTURE WAS ORDERED HERE IN THE EMERGENCY ROOM DEPARTMENT PLEASE FOLLOW-UP WITH PRIMARY CARE PROVIDER AND ADVISE THEM TO GET REPEAT PORTS FROM OUR FACILITY. IF YOU HAD ANY AJ WRAP/SPLINTS THAT WERE APPLIED HERE, PLEASE DO NOT REMOVE THEM UNTIL YOU SEE YOUR PRIMARY CARE OR SPECIALTY. TAKE ANTIBIOTICS DIRECTED UNTIL GONE. APPLY BACTROBAN OINTMENT 3 TIMES A DAY FOR FIVE DAYS WITH BAND-AID TO PUNCTURE WOUNDS RIGHT HAND. FOLLOW UP WITH YOUR PRIMARY CARE DOCTOR. Referrals: TIFFANIE REYES MD (PCP) Time of Disposition: 16:06 I have reviewed the case, and I agree with, Diagnosis and Plan LEOBARDO MEEKS NP Oct 11, 2024 16:07
[2024-10-11] MEDS: NEOMY SULF/BACITRA/POLYMYXIN B 1 EACH PACKET TP ONE (16:56)
[2024-10-11] MEDS: AMOX/CLAV 875/125MG TAB PO ONE (16:56)
[2024-10-11] MEDS: acetaMINOPHEN 500 MG TABLET PO ONE (16:56)
[2024-10-11] MEDS: teTANUS/diphthERIA TOXOID [ADULT] 0.5 ML VIAL IM ONE (16:57)
[2024-10-11 17:10] VITALS: BP 166/91; PULSE 66; RESP 16; TEMP 98.3; O2SAT 98
== END 2024-10-11 17:20 | disposition home or self-care (01) ==
LOC: EDH 15:57
DX: S61.451A Open bite of right hand, initial encounter (principal); I10 Essential (primary) hypertension; Z79.82 Long term (current) use of aspirin; Z79.899 Other long term (current) drug therapy; Z98.890 Other specified postprocedural states; W54.0XXA Bitten by dog, initial encounter; Y93.89 Activity, other specified; Y92.89 Other specified places as the place of occurrence of the external cause; Y99.8 Other external cause status
CPT/HCPCS: 90471; 90714; 99284

== ENCOUNTER 2024-10-15 10:59 | Emergency (ER) | payer MEDICARE ==
[~2024-10-15] VITALS: Ht 177.8 cm; Wt 74.8 kg
[~2024-10-15 10:59] MED LIST changes: +AMOX1TAB16 PO; +MUPI22O TP
--- NOTE | 2024-10-15 11:42 | ERN ---
ED Note History of Present Illness Stated Complaint: DIARRHEA Chief Complaint: Diarrhea Time Seen by MD: 11:03 Dictation: HISTORY OF PRESENT ILLNESS: 79-year-old male with past medical history of hypertension presented with complaints of sudden onset of watery stools since yesterday night. As per the patient he was on Augmentin since Monday; since he has history of developing loose stools after the antibiotic-he stopped the antibiotic after 1st day. He has multiple bowel movements at night and could not sleep at night. He denies any abdominal pain, fever, nausea, vomiting, shortness of breath, chest pain at this time. The time of presentation his temperature is 100.9, pulse rate 90 per minute, respiratory rate 20 per minute, blood pressure 160/91 mmHg, pulse oximetry 96% on room air. He is not in acute distress. Allergies: Coded Allergies: No Known Drug Allergies (Verified Allergy, Unknown, 11/14/19) Home Meds Active Scripts Mupirocin (Bactroban 2% Oint) 2 % Oint, 1 APPL TP TID for 5 Days, #15 GM 0 Refills apply to affected area(s) Prov:LEOBARDO MEEKS NP 10/11/24 Amoxicillin/Potassium Clav (Amox Tr-K Clv 875-125 mg Tab) 875 Mg-125 Mg Tablet, 1 EACH PO BID for 7 Days, #14 TAB 0 Refills Prov:LEOBARDO MEEKS NP 10/11/24 Naproxen (Naprosyn) 500 Mg Tablet, 500 MG PO BIDPC PRN for PAIN for 10 Days, #20 TAB 0 Refills Prov:YAQUELIN GREEN MD 08/26/23 Naproxen (Naproxen) 375 Mg Tablet, 375 MG PO BID for 10 Days, #20 TAB 0 Refills Prov:TERRI ACOSTA Sr., MD 05/15/23 Hydrocodone/Acetaminophen (Remus 5-325 Tablet) 1 Each Tablet, 1-2 EACH PO Q6HPRN PRN for pain, #60 TAB Prov:BRETT BECKER MD 11/15/19 Aspirin (ASPIRIN 81 MG ECTAB) 81 Mg Ectab, 81 MG PO BID, #60 TAB.EC Prov:BRETT BECKER MD 11/15/19 Hydrocodone/Acetaminophen (Remus 5-325 Tablet) 1 Each Tablet, 1-2 EACH PO Q6HPRN PRN for PAIN, #60 TAB Prov:BRETT BECKER MD 06/05/19 Reported Medications Cholecalciferol (Vitamin D3) (Vitamin D3) 25 Mcg Tablet, 25 MCG PO DAILY, TAB 11/13/19 [Vitamin B12] No Conflict Check, 1000 MCG PO DAILY 11/13/19 Vitamin E (Dl,Tocopheryl Acet) (Vitamin E) 100 Unit Capsule, 100 UNIT PO DAILY, CAP 11/13/19 Acetaminophen (Acetaminophen) 325 Mg Tablet, 325 MG PO BID PRN for PAIN LEVEL 2 TO 5, TAB 11/13/19 [Nadia] No Conflict Check, 10 MG PO DAILY 11/13/19 Trazodone HCl (Trazodone HCl) 50 Mg Tablet, 25 MG PO HSPRN PRN for SLEEP, TAB 11/13/19 Acetaminophen/Chlorpheniramine (Coricidin Hbp Cold & Flu Tab) 1 Each Tablet, 1 EACH PO DAILY, TAB 05/31/19 Amlodipine Besylate (Amlodipine Besylate) 5 Mg Tablet, 5 MG PO DAILY, TAB 05/31/19 Telmisartan (Telmisartan) 80 Mg Tablet, 80 MG PO DAILY, TAB 05/31/19 Omeprazole (Omeprazole) 20 Mg Tablet.dr, 20 MG PO DAILY, TAB 02/17/17 Past Medical History Past Medical History: Hypertension Additional Past Medical Hx: BACK PAIN, SINUS PROBLEMS Surgical History: Other Surgical History Other: BILAT HIP Social History: Negative Review of System Dictation REVIEW OF SYSTEMS Positive for loose stools CONSTITUTIONAL: Denies fevers, chills, or night sweats. No unintentional weight loss reported. ENT: No hearing loss, otalgia, otorrhea, rhinitis, rhinorrhea, hoarseness, or sore throat. CARDIOVASCULAR: Denies any exertional angina, dyspnea on exertion, orthopnea, paroxysmal nocturnal dyspnea, palpitations claudication. PULMONARY: Denies any shortness of breath, cough, phlegm / sputum, hemoptysis, pleuritic chest pain. SLEEP: Denies morning headaches, daytime somnolence or napping. Denies difficulty falling asleep, staying asleep, waking from sleep. Denies knowledge of snoring. GASTROINTESTINAL: Denies any type of dysphagia to either liquids or solids. Denies nausea, vomiting, abdominal pain, constipation, blood in stools . NEUROLOGICAL: Denies headache, motor weakness, sensory deficit, vertigo / spinning sensation, gait abnormalities, or tremors. GENITOURINARY: Denies frequency, urgency, nocturia, hematuria or incontinence, low urinary stream, straining to void, urinary intermittency or hesitancy ENDOCRINOLOGY: Denies polyuria, polydipsia, polyphagia or heat / cold intolerance. HEMATOLOGY: Denies thrombophilia / previous clots, or coagulopathy / bleeding disorders. ONCOLOGIC: Denies personal history of malignancy. DERMATOLOGIC: Denies rashes or pruritus. PSYCHIATRIC: Denies any suicidal or homicidal ideation. Denies hallucinations. Initial Vital Sign VS Vital Signs Date Time Temp Pulse Resp B/P (MAP) Pulse Ox O2 Delivery O2 Flow Rate FiO2 10/15/24 11:13 100.9 90 20 160/91 96 Room Air 0 10/15/24 11:51 21 Physical Exam Dictation PHYSICAL EXAM GENERAL APPEARANCE: Well nourished . Awake and alert. Oriented to time, place and person. No acute cardiopulmonary distress. HEENT: Head normocephalic , atraumatic. Sclera anicteric . Pupils are round and reactive. Extraocular movements intact . No conjunctival injection. No nasal congestion. No throat congestion .Oral mucosa moist. NECK: Supple. No JVD. No thyromegaly. No submental, submandibular, pre- /postauricular, occipital or supraclavicular lymphadenopathy. No carotid bruits. CHEST: Normal chest expansion. No Telemetry. LUNGS: Clear to auscultation bilaterally . No rales, rhonchi or any wheezing. Equal tactile fremitus. Resonant to percussion . CARDIOVASCULAR: Regular rate and rhythm. S1 and S2 normal. No rubs, murmurs or gallops. ABDOMEN: Soft, nontender, and nondistended. There is no rebound tenderness, voluntary guarding, or rigidity. No hepatosplenomegaly. Bowel sounds normal in all four quadrants . NEUROLOGICAL: Cranial nerves II-XII grossly intact. Motor is 5/5 in bilateral upper and lower extremities . No sensory deficits. EXTREMITIES: No edema, No cyanosis , No clubbing. Good capillary refill. SKIN: No skin breakdown. No rashes or lesions . PSYCHIATRY: Normal affect .No auditory or visual hallucinations. Normal speech. No dysarthria. Results (Laboratory/Radiology) Laboratory/Radiology Laboratory Tests Test 10/15/24 11:40 10/15/24 11:43 Urine Color LIGHT-YELLOW (YELLOW) Urine Appearance CLEAR (CLEAR) Urine pH 5.5 (5.0-8.0) Urine Specific Sunset 1.020 (1.001-1.031) Urine Protein 20 mg/dL (NEGATIVE) H Urine Glucose (UA) NEGATIVE mg/dL (NEGATIVE) Urine Ketones NEGATIVE mg/dL (NEGATIVE) Urine Occult Blood SMALL (NEGATIVE) H Urine Nitrate NEGATIVE (NEGATIVE) Urine Bilirubin NEGATIVE mg/dL (NEGATIVE) Urine Urobilinogen 0.2 mg/dL (0.2-1.0) Urine Leukocyte Esterase NEGATIVE Dorina/uL Urine RBC 0-1 /HPF (0-1) Urine WBC 0-1 /HPF (0-1) Urine Squamous Epithelial Cells Rare /HPF (0-2) Urine Bacteria None Seen /HPF (None Seen) White Blood Count 5.2 K/uL (4.8-10.8) Red Blood Count 5.20 MIL/uL (4.50-6.20) Hemoglobin 15.0 g/dL (14.0-18.0) Hematocrit 45.5 % (42-54) Mean Corpuscular Volume 87.5 fL (79-99) Mean Corpuscular Hemoglobin 28.8 pg (27.0-33.0) Mean Corpuscular Hemoglobin Concent 33.0 g/dL (32.0-36.0) Red Cell Distribution Width 14.6 % (11.0-15.5) Platelet Count 169 K/uL (130-400) Mean Platelet Volume 10.4 fL (7.5-10.5) Immature Granulocyte % (Auto) 0.4 % (0-1) Neutrophils (%) (Auto) 82.0 % (40.0-77.0) H Lymphocytes (%) (Auto) 6.9 % (21.0-51.0) L Monocytes (%) (Auto) 8.8 % (3.0-13.0) Eosinophils (%) (Auto) 1.5 % (0.0-8.0) Basophils (%) (Auto) 0.4 % (0.0-5.0) Neutrophils # (Auto) 4.3 K/uL (1.8-7.7) Lymphocytes # (Auto) 0.4 K/uL (1.0-4.8) L Monocytes # (Auto) 0.5 K/uL (0.1-1.0) Eosinophils # (Auto) 0.08 K/uL (0.00-0.70) Basophils # (Auto) 0.02 K/uL (0.00-0.20) Absolute Immature Granulocyte (auto 0.02 K/uL (0-1) Nucleated Red Blood Cells 0.0 % (0.0-0.19) White Cell Morphology Comment See comments Sodium Level 140 mmol/L (136-145) Potassium Level 3.6 mmol/L (3.5-5.1) Chloride Level 106 mmol/L (101-111) Carbon Dioxide Level 21 mmol/L (21-32) Blood Urea Nitrogen 16 mg/dL (7-18) Creatinine 1.3 mg/dL (0.5-1.3) Glomerular Filtration Rate Calc 56 mL/min (>90) Random Glucose 101 mg/dL (70-105) Lactic Acid Level 1.4 mmol/L (0.8-2.5) Total Calcium 8.7 mg/dL (8.5-10.1) Procalcitonin 0.18 ng/mL (0.05-0.5) ED Course ED Course Orders Procedure Category Date Status Time Cbc With Differential LAB 10/15/24 Complete 11:27 Basic Metabolic Panel LAB 10/15/24 Complete 11:27 Lactic Acid LAB 10/15/24 Complete 11:27 Procalcitonin LAB 10/15/24 Complete 11:27 0.9%Nacl 1000ml (Ns PHA 10/15/24 Complete 1000ml) 11:30 Urinalysis Profile LAB 10/15/24 Complete 11:27 Acetaminophen 325 Tab PHA 10/15/24 Complete (Tylenol 325mg Tab 12:00 Current Medications Medications (Trade) Dose Ordered Sig/Ney Route PRN Reason Start Time Stop Time Status Last Admin Dose Admin Acetaminophen (TYLenol 325MG TAB) 650 mg ONCE ONCE PO 10/15/24 12:00 10/15/24 12:01 DC 10/15/24 12:02 Sodium Chloride 1,000 ml @ 100 mls/hr Q10H ONCE IV 10/15/24 11:30 10/15/24 13:44 DC 10/15/24 11:50 Vital Signs Date Time Temp Pulse Resp B/P (MAP) Pulse Ox O2 Delivery O2 Flow Rate FiO2 10/15/24 13:32 99.0 89 16 143/78 98 Room Air* 0 21 10/15/24 12:02 100.6 10/15/24 11:51 100.6 98 18 134/88 97 Room Air* 0 21 10/15/24 11:13 100.9 90 20 160/91 96 Room Air 0 Medical Decision Making MDM Differential diagnosis : Antibiotic induced colitis, acute gastroenteritis, C diff colitis Rationale: Tests considered and ordered secondary to shared decision making include: I will re-evaluate the patient after treatment and diagnostic exams have returned to determine whether they require further testing, can be safely discharged home, or need admission for further treatment and evaluation. Given the social determinants of health affecting care, including literacy, access to medical care, prescription drug management, and [id number] drugs, I will ensure that treatment plans are tailored accordingly. There are no social concerns with this patient. Risk of complication and/or morbidity or mortality of patient management: None Need for hospitalization: Patient does not meet criteria for hospitalization. Need for emergency major/minor surgery: No Prescription drug management Prescriptions will include symptomatic care Medications-Per medication reconciliation Previous outside records reviewed: Old ER visits. Patient's prior external medical records from other ER visits were reviewed by me as indicated. Prior testing and results from previous visits were reviewed. Prior tests were taken into account with medical decision making and resource utilization, independent historian/historians were used to obtain complete medical history. I independently interpreted the test that were performed, results were reviewed by me and considered findings on radiology. Medical management and examination interpretation discussions was done by me with other qualified healthcare professionals as indicated for the patient's care. Revaluation: 79-year-old male with a past medical history of hypertension presented with complaints of loose stools x 1 day after starting Augmentin. He had similar history in the past and has stopped taking antibiotics after 1 day. No loose stools after 10:00 a.m. today. He denies any abdominal pain, dizziness asymptomatic currently. His labs are unremarkable vitals are stable. He was treated with IV fluids. Recommended to stop antibiotics and increase oral hydration. Disposition : Home DX & DISP Disposition: Discharge Departure Impression: Primary Impression: Gastroenteritis Additional Impression: Dehydration Condition: Stable Additional Instructions: Follow-up with primary care provider in 1-2 days Take medications as directed here in the emergency room. It is okay to continue home medications unless otherwise discussed during your visit in the emergency room today. Increase oral hydration. Return to your nearest emergency room if symptoms worsen or if there is no improvement. Call 911 if you need immediate assistance. Referrals: TIFFANIE REYES MD (PCP) I performed a substantive portion of the visit. I have reviewed and personally made and approve the management plan that is documented in the notes by myself with ANNALISA/resident. I acknowledged full responsibility for the patient's management plan. FARRUKH BECK MD Oct 15, 2024 11:42 MUNIR VAUGHN DO Oct 17, 2024 08:18
[2024-10-15] MEDS: 0.9%NACL 1000ML 1,000 ML IV ONE (11:50)
[2024-10-15 12:01] LABS: BASOPHILS # (AUTO) 0.02 K/uL (0.00-0.20); BASOPHILS % (AUTO) 0.4 % (0.0-5.0); EOSINOPHILS # (AUTO) 0.08 K/uL (0.00-0.70); EOSINOPHILS % (AUTO) 1.5 % (0.0-8.0); HEMATOCRIT 45.5 % (42-54); IMMATURE GRANULOCYTE ABSOLUTE 0.02 K/uL (0-1); LYMPHOCYTES # (AUTO) 0.4 K/uL (1.0-4.8); LYMPHOCYTES % (AUTO) 6.9 % (21.0-51.0); MEAN CORPUSCULAR HEMOGLOBIN 28.8 pg (27.0-33.0); MEAN CORPUSCULAR VOLUME 87.5 fL (79-99); MONOCYTES # (AUTO) 0.5 K/uL (0.1-1.0); MONOCYTES % (AUTO) 8.8 % (3.0-13.0); NEUTROPHILS # (AUTO) 4.3 K/uL (1.8-7.7); PLATELET COUNT (AUTO) 169 K/uL (130-400); RED CELL DISTRIBUTION WIDTH 14.6 % (11.0-15.5); WHITE BLOOD COUNT (AUTO) 5.2 K/uL (4.8-10.8)
[2024-10-15 12:02] VITALS: TEMP 100.5
[2024-10-15] MEDS: acetaMINOPHEN 325 MG TAB PO ONE (12:02)
[2024-10-15 12:05] LABS: CREATININE 1.3 mg/dL (0.5-1.3); POTASSIUM 3.6 mmol/L (3.5-5.1)
[2024-10-15 12:05] LABS: APPEARANCE,URINE CLEAR (CLEAR); BILIRUBIN,URINE NEGATIVE (NEGATIVE); COLOR,URINE LIGHT-YELLOW (YELLOW); GLUCOSE, URINE (UA) NEGATIVE (NEGATIVE); KETONES,URINE NEGATIVE (NEGATIVE); LEUKOCYTE ESTERASE ,URINE NEGATIVE Leu/uL (NEGATIVE); NITRATE,URINE NEGATIVE (NEGATIVE); OCCULT BLOOD,URINE SMALL (NEGATIVE); PH,URINE 5.5 (5.0-8.0); PROTEIN,URINE 20 mg/dL (NEGATIVE); UROBILINOGEN,URINE 0.2 mg/dL (0.2-1.0)
[2024-10-15 12:08] LABS: ADD UA MICROSCOPIC YES
[2024-10-15 12:11] LABS: BACTERIA,URINE None Seen /HPF (None Seen); RBC,URINE 0-1 /HPF (0-1); SQUAMOUS EPITHELIAL CELL,UR Rare /HPF (0-2); WBC,URINE 0-1 /HPF (0-1)
[2024-10-15 13:32] VITALS: BP 143/78; PULSE 89; RESP 16; TEMP 98.9; O2SAT 98
--- NOTE | 2024-10-15 13:35 | NUR ---
PT STABLE NO DISTRESS VITALS WNL NO C/O PAIN NOW, NO EPISODES OF DIARRHEA HERE IN ER. PT GIVEN INSTRUCTIONS FOR HOME, VERBALZIED UNDERSTANDING, IV REMOVED CATHETER INTACT. PT WALKED OUT TO ER LOBBY DRIVEN HOME BY FAMILY.
== END 2024-10-15 13:42 | disposition home or self-care (01) ==
LOC: EDH 10:59
DX: K52.9 Noninfective gastroenteritis and colitis, unspecified (principal); E86.0 Dehydration; I10 Essential (primary) hypertension; Z79.82 Long term (current) use of aspirin; Z79.899 Other long term (current) drug therapy
CPT/HCPCS: 99284; 96360; 96361; 80048; 85025; 83605; 81001; 36415; 84145; J7030

== ENCOUNTER 2024-11-03 13:35 | Emergency (ER) | payer MEDICARE ==
[~2024-11-03] VITALS: Ht 177.8 cm; Wt 74.8 kg
[2024-11-03 14:23] LABS: SARS-CoV-2, RNA, NAAT NEGATIVE SARS CoV-2 (NEGATIVE)
[2024-11-03 14:27] LABS: INFLUENZA TYPE A Negative For Type A (NEGATIVE); INFLUENZA TYPE B Negative For Type B (NEGATIVE)
--- NOTE | 2024-11-03 16:02 | ERN ---
General Chief Complaint: Flu Symptoms Stated Complaint: FLU LIKE SYMPTOMS Time Seen by MD: 13:38 Time Seen by Midlevel: 13:38 Source: patient History of Present Illness Initial Comments Patient is a 79-year-old male with a past medical history of hypertension presenting to the emergency department for evaluation of flu-like symptoms that started three days ago. Symptoms consist of chills, congestion and fever. Denies any other symptoms. Allergies: Coded Allergies: No Known Drug Allergies (Verified Allergy, Unknown, 11/14/19) Home Meds Active Scripts Mupirocin (Bactroban 2% Oint) 2 % Oint, 1 APPL TP TID for 5 Days, #15 GM 0 Refills apply to affected area(s) Prov:LEOBARDO MEEKS NP 10/11/24 Amoxicillin/Potassium Clav (Amox Tr-K Clv 875-125 mg Tab) 875 Mg-125 Mg Tablet, 1 EACH PO BID for 7 Days, #14 TAB 0 Refills Prov:LEOBARDO MEEKS NP 10/11/24 Naproxen (Naprosyn) 500 Mg Tablet, 500 MG PO BIDPC PRN for PAIN for 10 Days, #20 TAB 0 Refills Prov:YAQUELIN GREEN MD 08/26/23 Naproxen (Naproxen) 375 Mg Tablet, 375 MG PO BID for 10 Days, #20 TAB 0 Refills Prov:TERRI ACOSTA Sr., MD 05/15/23 Hydrocodone/Acetaminophen ([place] 5-325 Tablet) 1 Each Tablet, 1-2 EACH PO Q6HPRN PRN for pain, #60 TAB Prov:BRETT BECKER MD 11/15/19 Aspirin (ASPIRIN 81 MG ECTAB) 81 Mg Ectab, 81 MG PO BID, #60 TAB.EC Prov:BRETT BECKER MD 11/15/19 Hydrocodone/Acetaminophen ([place] 5-325 Tablet) 1 Each Tablet, 1-2 EACH PO Q6HPRN PRN for PAIN, #60 TAB Prov:BRETT BECKER MD 06/05/19 Reported Medications Cholecalciferol (Vitamin D3) (Vitamin D3) 25 Mcg Tablet, 25 MCG PO DAILY, TAB 11/13/19 [Vitamin B12] No Conflict Check, 1000 MCG PO DAILY 11/13/19 Vitamin E (Dl,Tocopheryl Acet) (Vitamin E) 100 Unit Capsule, 100 UNIT PO DAILY, CAP 11/13/19 Acetaminophen (Acetaminophen) 325 Mg Tablet, 325 MG PO BID PRN for PAIN LEVEL 2 TO 5, TAB 11/13/19 [Nadia] No Conflict Check, 10 MG PO DAILY 11/13/19 Trazodone HCl (Trazodone HCl) 50 Mg Tablet, 25 MG PO HSPRN PRN for SLEEP, TAB 11/13/19 Acetaminophen/Chlorpheniramine (Coricidin Hbp Cold & Flu Tab) 1 Each Tablet, 1 EACH PO DAILY, TAB 05/31/19 Amlodipine Besylate (Amlodipine Besylate) 5 Mg Tablet, 5 MG PO DAILY, TAB 05/31/19 Telmisartan (Telmisartan) 80 Mg Tablet, 80 MG PO DAILY, TAB 05/31/19 Omeprazole (Omeprazole) 20 Mg Tablet.dr, 20 MG PO DAILY, TAB 02/17/17 Past Medical History Past Medical History: Hypertension Medical History Other: BACK PAIN, SINUS PROBLEMS Past Surgical History: None Surgical History Other: HIP SX, Social History Social History: Negative ROS Dictation CONSTITUTIONAL: Negative except for HPI HEAD/FACE: Negative except for HPI EENT: Negative except for HPI RESPIRATORY: Negative except for HPI GASTROINTESTINAL/ABDOMINAL: Negative except for HPI GENITOURINARY: Negative except for HPI MUSCULOSKELETAL: Negative except for HPI INTEGUMENTARY: Negative except for HPI NEUROLOGICAL/PSYCH: Negative except for HPI HEMATOLOGIC/LYMPHATIC: Negative except for HPI All Systems Negative, Except as noted above. 13 point review of systems assessed and all negative except for above. Physical Exam Physical Exam Dictation Vital Signs reviewed General Appearance: Alert, oriented x 3, no acute distress, well developed, nourished. Head and Face: non-traumatic. Eyes: PERRL, pink conjunctivas, eyelid no trauma, anterior chamber with arcus senilis. Ears: Pinnas intact and no signs of trauma or erythema ear canals clear and no discharge TM no erythema Nose: No discharge, no bleeding. Oropharynx: Mouth normal, tongue pink, pharynx clear,no erythema, tonsils no exudates, no abscesses noted, mucous membrane moist Neck: Supple, non-tender, no thyromegaly, no masses, no JVD, no bruits Breast:Deferred Chest:No tenderness, no crepitus, no paradoxical movement, no retractions Lungs:Clear, well-ventilated, symmetric, no rales, no wheezing, no rhonchi, no stridor, good breath sounds bilaterally Heart: Regular rate, regular rhythm, no murmur, no gallops Vascular: no peripheral edema, Abdomen: Soft, positive bowel sounds, nondistended, no guarding, nontender, no rebound, no masses no hepatomegaly, no splenomegaly, no Clement's sign, no hernias. Rectal: Deferred Genital: Deferred Neurological: Normal speech, motor function intact, sensory function intact Musculoskeletal: Neck nontender, full range of motion, back nontender, full range of motion, Extremities: nontender, full range of motion Skin: Color pink, dry, no turgor, no rash, no lacerations, no abrasions, no contusions. Lymphatic: Deferred Results Laboratory and Microbiology Lab and Micro Result Laboratory Tests Test 11/03/24 13:40 Influenza Type A Antigen Negative For Type A Influenza Type B Antigen Negative For Type B SARS-CoV-2, RNA, NAAT NEGATIVE SARS CoV-2 Labs Reviewed?: Yes MDM MDM: Differential diagnosis: Viral illness, upper respiratory infection, sinusitis There are no social concerns with this patient. Prescription drug management Prescriptions will include: Azithromycin, Medrol pack Medical management and examination interpretation discussions were had by me with other qualified healthcare professionals as indicated for the patient's care. ED Course Orders Procedure Category Date Status Time Covid Rna Naat LAB 11/03/24 Complete 13:40 Influenza Type A & B, LAB 11/03/24 Complete Rapid 13:40 Rapid (Group A Strep) LAB 11/03/24 Logged 14:36 Vital Signs Date Time Temp Pulse Resp B/P (MAP) Pulse Ox O2 Delivery O2 Flow Rate FiO2 11/03/24 14:44 99.0 95 16 115/70 98 Room Air* 0 21 11/03/24 13:36 99.1 97 18 115/72 96 Room Air 0 DX & DISP Disposition: Discharge Departure Impression: Primary Impression: Upper respiratory infection Condition: Stable Scripts Methylprednisolone (Medrol) 4 Mg Tab.ds.pk 1 TAB PO AD for 6 Days, #21 TAB 0 Refills 6 on day 1 then reduce by one tablet daily until gone Prov: TIFFANIE TORO 11/03/24 Azithromycin (Azithromycin) 250 Mg Tablet 1 TAB PO AD for 5 Days, #6 TAB 0 Refills 2 the first day followed by 1 for days 2-5 Prov: TIFFANIE TORO 11/03/24 Referrals: TIFFANIE REYES MD (PCP) I have reviewed the case, and I agree with, Diagnosis and Plan I performed the substantive portion of the visit. I have reviewed and personally made and approve the management plan that is documented in the note by myself or the ANNALISA. I acknowledge for responsibility for the patient's management plan. TIFFANIE TORO Nov 03, 2024 16:02
[2024-11-03] MEDS ORDERED: METH4TAB3 PO (16:20)
[2024-11-03] MEDS ORDERED: AZIT250T9 PO (16:20)
[2024-11-03 16:21] VITALS: BP 123/68; PULSE 89; RESP 18; TEMP 98.9; O2SAT 9
--- NOTE | 2024-11-03 16:23 | NUR ---
PT AAOX4 , PT STABLE NO DISTRESS, VITALS WNL NO C/O PAIN AT THIS TIME, PT STATED HE FEELS BETTER, RX SENT TO PT PHARMACY WILL START TODAY, PT HAD NO IV AT THIS TIME, PT DRIVEN HOME BY PARTNER.
[2024-11-06] MEDS ORDERED: OMEP40CA21 PO (13:20)
[2024-11-06] MEDS ORDERED: DICLOFENAC TP (13:20)
[2024-11-06] MEDS ORDERED: GABA-529 PO (13:20)
[2024-11-06] MEDS ORDERED: TELM1TAB48 PO (13:20)
[2024-11-06] MEDS ORDERED: MONT-39 PO (13:20)
[2024-11-06] MEDS ORDERED: [UNRECOGNIZED DRUG - OTHER] TP (13:20)
[2024-11-06] MEDS ORDERED: AEC81 PO (13:20)
[2024-11-06] MEDS ORDERED: TAMS-55 PO (13:20)
[2024-11-06] MEDS ORDERED: CEFU500T67 PO (13:23)
[2024-11-06] MEDS ORDERED: PRED20TA3 PO (13:23)
== END 2024-11-03 16:28 | disposition home or self-care (01) ==
LOC: EDH 13:35
DX: J06.9 Acute upper respiratory infection, unspecified (principal); I10 Essential (primary) hypertension; Z20.822 Contact with and (suspected) exposure to COVID-19; Z79.82 Long term (current) use of aspirin; Z79.899 Other long term (current) drug therapy
CPT/HCPCS: 87635; 87804; 99283

== ENCOUNTER 2025-01-04 08:50 | Emergency (ER) | payer MEDICARE ==
[~2025-01-04] VITALS: Ht 177.8 cm; Wt 74.8 kg
[~2025-01-04 08:50] MED LIST changes: -ACET-3859 PO; -ACET1TAB18 PO; -ALLEGRA PO; -AMLO-257 PO; -AMOX1TAB16 PO; -CHOL-34 PO; +DICLOFENAC TP; +GABA-529 PO; -HYDR-4457 PO; +MONT-39 PO; -MUPI22O TP; -NAPR-1180 PO; -NAPR-1192 PO; -OMEP20TA20 PO; +OMEP40CA21 PO; +PRED20TA3 PO; +TAMS-55 PO; +TELM1TAB48 PO; -TELM80TA10 PO; -TRAZ-185 PO; -VITA100C26 PO; -VITAMIN B12 PO; +[UNRECOGNIZED DRUG - OTHER] TP
[2025-01-04 09:26] LABS: ADD UA MICROSCOPIC YES; APPEARANCE,URINE CLEAR (CLEAR); BILIRUBIN,URINE NEGATIVE (NEGATIVE); COLOR,URINE LIGHT-YELLOW (YELLOW); GLUCOSE, URINE (UA) NEGATIVE (NEGATIVE); KETONES,URINE NEGATIVE (NEGATIVE); LEUKOCYTE ESTERASE ,URINE 25 Leu/uL (NEGATIVE); NITRATE,URINE NEGATIVE (NEGATIVE); OCCULT BLOOD,URINE NEGATIVE (NEGATIVE); PH,URINE 5.5 (5.0-8.0); PROTEIN,URINE NEGATIVE (NEGATIVE); UROBILINOGEN,URINE 0.2 mg/dL (0.2-1.0)
[2025-01-04 09:29] LABS: MUCUS,URINE RARE LPF (None Seen)
[2025-01-04 09:30] LABS: BASOPHILS # (AUTO) 0.03 K/uL (0.00-0.20); BASOPHILS % (AUTO) 0.7 % (0.0-5.0); EOSINOPHILS # (AUTO) 0.18 K/uL (0.00-0.70); IMMATURE GRANULOCYTE ABSOLUTE 0.01 K/uL (0-1); LYMPHOCYTES % (AUTO) 22.9 % (21.0-51.0); MEAN CORPUSCULAR HEMOGLOBIN 28.7 pg (27.0-33.0); MEAN CORPUSCULAR HGB CONC 32.2 g/dL (32.0-36.0); MEAN CORPUSCULAR VOLUME 88.9 fL (79-99); MONOCYTES # (AUTO) 0.5 K/uL (0.1-1.0); MONOCYTES % (AUTO) 11.9 % (3.0-13.0); NEUTROPHILS # (AUTO) 2.7 K/uL (1.8-7.7); NEUTROPHILS % (AUTO) 60.3 % (40.0-77.0); PLATELET COUNT (AUTO) 170 K/uL (130-400); RED BLOOD CELL COUNT(AUTO) 5.06 MIL/uL (4.50-6.20); RED CELL DISTRIBUTION WIDTH 15.5 % (11.0-15.5); WHITE BLOOD COUNT (AUTO) 4.5 K/uL (4.8-10.8)
[2025-01-04 09:37] LABS: CREATININE 1.2 mg/dL (0.5-1.3)
[2025-01-04] MEDS: acetaMINOPHEN 325 MG TAB PO ONE (09:43)
[2025-01-04 09:51] LABS: B-TYPE NATRIURETIC PEPTIDE 51 pg/mL (0-100)
[2025-01-04] MEDS: cloNIDine HCL 0.2 MG TABLET PO ONE (09:57)
--- NOTE | 2025-01-04 10:23 | HMCIMG ---
PORTABLE CHEST RADIOGRAPH INDICATION: chest pain COMPARISON: None FINDINGS: mash preparatory operator leads overlie the field of view. Heart size is normal. The pulmonary vascularity and benjamín appear normal. No abnormal pulmonary parenchymal opacity or consolidation identified. No significant pleural effusion noted. No pneumothorax detected. IMPRESSION: No radiographic evidence for any acute cardiopulmonary process.
--- NOTE | 2025-01-04 10:28 | EKG ---
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
[2025-01-04 10:40] VITALS: TEMP 98.2
[2025-01-04 11:09] VITALS: BP 151/93; PULSE 65; RESP 21; TEMP 98.1; O2SAT 99
[2025-01-04] MEDS ORDERED: CLON0.2T PO (11:19)
--- NOTE | 2025-01-04 11:19 | ERN ---
General Chief Complaint: Hypertension Stated Complaint: HIGH BP;HEADACHE Time Seen by MD: 09:04 History of Present Illness Initial Comments 79M, hx HTN, presents for "feeling shaky," "feeling anxious" beginning last night. Patient reports that he was in his normal state of health yesterday. On arrival home from dinner he reports feeling "off", no chest pain or dyspnea or fever. No n/v/d. Throughout the night he reported feeling "shaky" and did not sleep well. He reports a mild headache. He took his BP at home and found it to be elevated. He reports that he is an anxious person generally and thinks it may be releated to anxiety, but wanted to come to the ED to get checked out. No focal neurologic deficits. Allergies: Coded Allergies: No Known Drug Allergies (Verified Allergy, Unknown, 11/14/19) Home Meds Reported Medications Prednisone (Prednisone) 20 Mg Tablet, 20 MG PO DAILY, TAB 11/06/24 [Voltaren Diclofenac] Unknown Strength No Conflict Check, TP 11/06/24 Gabapentin (Gabapentin) 100 Mg Capsule, 300 MG PO BID, CAP 11/06/24 Aspirin (ASPIRIN 81 MG ECTAB) 81 Mg Ectab, 81 MG PO DAILY, TAB.EC 11/06/24 Tamsulosin HCl (Flomax) 0.4 Mg Cap.er.24h, 0.4 MG PO DAILY, CAPSULE. 11/06/24 Montelukast Sodium (Montelukast Sodium) 10 Mg Tablet, 1 TAB PO DAILY for 30 Days, #30 TAB 0 Refills 11/06/24 Omeprazole (Omeprazole) 40 Mg Capsule.dr, 40 MG PO DAILY, CAP 11/06/24 Telmisartan/Amlodipine (Telmisartan-Amlodipine 80-5 mg) 80 Mg-5 Mg Tablet, 1 TAB PO DAILY for 30 Days, #30 TAB 0 Refills 11/06/24 Past Medical History Past Medical History: Hypertension Medical History Other: BACK PAIN, SINUS PROBLEMS Past Surgical History: Other Surgical History Other: BILATERAL HIP SX Family History Family History: Negative Social History Social History: Negative ROS Dictation CONSTITUTIONAL: Anxiety HEAD/FACE: No signs of trauma. EENT: No eye pain, no blurred vision, no tearing, no double vision, no ear pain, no ear discharge, no nose pain, no nasal congestion, no throat pain, no throat swelling, no mouth pain. RESPIRATORY: No cough, no orthopnea, no SOB, no stridor, no wheezing. CARDIOVASCULAR: No chest pain, no edema, no palpitations, no syncope. GASTROINTESTINAL/ABDOMINAL: No abdominal pain, no constipation, no diarrhea, no nausea, no vomiting. GENITOURINARY: No abnormal discharge, no dysuria, no frequent urination, no hematuria. No complaints of pain in the genitals. MUSCULOSKELETAL: No back pain, no gout, no joint pain, no joint swelling, no muscle pain, no muscle stiffness, no neck pain. INTEGUMENTARY: No change in color, no change in hair/nails, no dryness, no lesion, no lumps, no rash. NEUROLOGICAL/PSYCH: No anxiety, not depressed, no emotional problem, no headache, no numbness, no pre-existing deficit, no history of seizures, no tremors, no weakness. HEMATOLOGIC/LYMPHATIC: Not anemic, no history of blood clots, no apparent bleeding, no bruising, glands not swollen. All Systems Negative, Except as Noted. Physical Exam Physical Exam Dictation VITAL SIGNS: Reviewed. GENERAL APPEARANCE: Alert, oriented x3, no acute distress. HEAD AND FACE: Non-traumatic. EYES: PERRL, pink conjunctivas, eyelid no trauma, anterior chamber clear. EARS: Pinnas intact and no signs of trauma or erythema. Ear canals clear and no discharge. TMs no erythema. NOSE: No discharge, no bleeding. OROPHARYNX: Mouth normal, teeth no caries, tongue pink. Pharynx clear, no erythema. Tonsils no exudates, no abscesses noted. Mucous membrane moist. NECK: Supple, non-tender, no thyromegaly, no masses, no JVD, no bruits. BREAST: Deferred. CHEST: No tenderness, no crepitus, no paradoxical movement, no retractions. LUNGS: Clear, well-ventilated, symmetric, no rales, no wheezing, no rhonchi, no stridor, good breath sounds bilaterally. HEART: Regular rate, regular rhythm, no murmur, no gallops. VASCULAR: No peripheral edema. ABDOMEN: Soft, positive bowel sounds, nondistended, no guarding, nontender, no rebound, no masses no hepatomegaly, no splenomegaly, no Clement's sign, no hernias. RECTAL: Deferred. GENITAL: Deferred. NEUROLOGICAL: Normal speech, gross motor function intact, gross sensory function intact. MUSCULOSKELETAL: Neck nontender, full range of motion, back nontender, full range of motion. EXTREMITIES: Nontender, full range of motion. SKIN: Color pink, dry, no turgor, no rash, no lacerations, no abrasions, no contusions. LYMPHATICS: Deferred. Results Laboratory and Microbiology Lab and Micro Result Laboratory Tests Test 01/04/25 09:14 01/04/25 09:17 Urine Color LIGHT-YELLOW (YELLOW) Urine Appearance CLEAR (CLEAR) Urine pH 5.5 (5.0-8.0) Urine Specific [place] 1.018 (1.001-1.031) Urine Protein NEGATIVE mg/dL (NEGATIVE) Urine Glucose (UA) NEGATIVE mg/dL (NEGATIVE) Urine Ketones NEGATIVE mg/dL (NEGATIVE) Urine Occult Blood NEGATIVE (NEGATIVE) Urine Nitrate NEGATIVE (NEGATIVE) Urine Bilirubin NEGATIVE mg/dL (NEGATIVE) Urine Urobilinogen 0.2 mg/dL (0.2-1.0) Urine Leukocyte Esterase 25 Dorina/uL (NEGATIVE) H Urine RBC 2-5 /HPF (0-1) H Urine WBC 2-5 /HPF (0-1) H Urine Bacteria None /HPF (None Seen) White Blood Count 4.5 K/uL (4.8-10.8) L Red Blood Count 5.06 MIL/uL (4.50-6.20) Hemoglobin 14.5 g/dL (14.0-18.0) Hematocrit 45.0 % (42-54) Mean Corpuscular Volume 88.9 fL (79-99) Mean Corpuscular Hemoglobin 28.7 pg (27.0-33.0) Mean Corpuscular Hemoglobin Concent 32.2 g/dL (32.0-36.0) Red Cell Distribution Width 15.5 % (11.0-15.5) Platelet Count 170 K/uL (130-400) Mean Platelet Volume 10.1 fL (7.5-10.5) Immature Granulocyte % (Auto) 0.2 % (0-1) Neutrophils (%) (Auto) 60.3 % (40.0-77.0) Lymphocytes (%) (Auto) 22.9 % (21.0-51.0) Monocytes (%) (Auto) 11.9 % (3.0-13.0) Eosinophils (%) (Auto) 4.0 % (0.0-8.0) Basophils (%) (Auto) 0.7 % (0.0-5.0) Neutrophils # (Auto) 2.7 K/uL (1.8-7.7) Lymphocytes # (Auto) 1.0 K/uL (1.0-4.8) Monocytes # (Auto) 0.5 K/uL (0.1-1.0) Eosinophils # (Auto) 0.18 K/uL (0.00-0.70) Basophils # (Auto) 0.03 K/uL (0.00-0.20) Absolute Immature Granulocyte (auto 0.01 K/uL (0-1) Nucleated Red Blood Cells 0.0 % (0.0-0.19) Sodium Level 140 mmol/L (136-145) Potassium Level 4.0 mmol/L (3.5-5.1) Chloride Level 106 mmol/L (101-111) Carbon Dioxide Level 25 mmol/L (21-32) Blood Urea Nitrogen 22 mg/dL (7-18) H Creatinine 1.2 mg/dL (0.5-1.3) Glomerular Filtration Rate Calc 62 mL/min (>90) Random Glucose 115 mg/dL (70-105) H Total Calcium 9.2 mg/dL (8.5-10.1) Total Creatine Kinase 241 U/L (21-232) #H Troponin I High Sensitivity 10 ng/L (4-75) B-Type Natriuretic Peptide 51 pg/mL (0-100) MDM CC: "Aspen", hypertension historian: Patient Comorbidities: HTN Limitations by social determinants of health: None Differential diagnosis: Hypertensive urgency, stroke, ACS, kidney disease, metabolic abnormality, other. Vital signs: Initially blood pressure 167/88, increased to 189/98. Other vital signs stable. After treatment blood pressure improved. EKG (independently interpreted by me): Normal sinus rhythm, rate of 62, normal axis, good R-wave progression, intervals are stable no STEMI. Clinical exam shows an NIHSS of 0, no focal neurologic deficits, no signs of stroke. Low suspicion. No imaging indicated. Labs (independently interpreted by me): No leukocytosis no anemia. Chemistry shows stable electrolytes, CK is stable troponin BNP are all stable. Urinalysis shows leuk esterase unlikely rate of the symptoms. No protein or major abnormalities. Chest x-ray (independently interpreted by me): No cardiomegaly pleural effusions or focal infiltrates noted. Treatment in ED: Tylenol, clonidine Re-evaluation: Patient is asymptomatic. Very low suspicious in her life threats. Patient's symptoms most consistent with a hypertensive urgency. He responded well to the clonidine. He is asymptomatic now. Low suspicion for stroke, ACS, other significant pathology. No major organ dysfunction. Plan: Discharge with a prescription for clonidine p.r.n. Recommend PCP follow up. ED Course Orders Procedure Category Date Status Time Cbc With Differential LAB 01/04/25 Complete 09:04 B-Type Natriuretic LAB 01/04/25 Complete Peptide 09:04 Chest 1vw RAD 01/04/25 Resulted 09:04 12 Lead Ekg Tracing- EKG 01/04/25 Complete Technical 09:04 Creatine Kinase, Total LAB 01/04/25 Complete 09:04 Troponin I High LAB 01/04/25 Complete Sensitivity 09:04 Urinalysis Profile LAB 01/04/25 Complete 09:04 Basic Metabolic Panel LAB 01/04/25 Complete 09:04 Acetaminophen 325 Tab PHA 01/04/25 Complete (Tylenol 325mg Tab 10:00 Clonidine Hcl 0.2 Mg PHA 01/04/25 Complete Tablet (Catapres 0. 10:00 Current Medications Medications (Trade) Dose Ordered Sig/Ney Route PRN Reason Start Time Stop Time Status Last Admin Dose Admin Acetaminophen (TYLenol 325MG TAB) 650 mg ONCE ONCE PO 01/04/25 10:00 01/04/25 10:01 DC 01/04/25 09:43 Clonidine HCl (CATApres 0.2 MG TAB) 0.2 mg ONCE ONCE PO 01/04/25 10:00 01/04/25 10:01 DC 01/04/25 09:57 Vital Signs Date Time Temp Pulse Resp B/P (MAP) Pulse Ox O2 Delivery O2 Flow Rate FiO2 01/04/25 11:09 98.1 65 21 151/93 99 Room Air* 0 01/04/25 10:39 98.1 70 22 124/83 96 Room Air* 0 21 01/04/25 10:09 98.2 18 17 146/78 97 Room Air* 0 01/04/25 09:57 98.2 64 17 159/82 99 Room Air* 0 21 01/04/25 09:57 64 159/82 01/04/25 09:43 98.2 01/04/25 09:23 98.2 65 17 189/98 96 Room Air* 0 21 01/04/25 08:52 98.1 77 20 167/88 99 Room Air 0 DX & DISP Disposition: Discharge Departure Impression: Primary Impression: Hypertensive urgency Condition: Stable Scripts Clonidine HCl (Clonidine HCl) 0.2 Mg Tablet 1 TAB PO BID for blood pressure >160/100 for 10 Days, #30 TAB 0 Refills Prov: MUNIR VAUGHN DO 01/04/25 Additional Instructions: Your symptoms are consistent with a hypertensive urgency, or elevation of the blood pressure without any end-organ damage. Your EKG is stable. Your lab work (CBC, metabolic panel, troponin, BNP, CK, urinalysis) is unremarkable. You received clonidine here in the ER. This is a medication that reduces blood pressure as needed. I recommend you continue with your home blood pressure medications. I recommend that you record your blood pressure at least every other day at the same time while calm. Discuss these readings with her primary doctor. I have prescribed clonidine tabs. Use this blood pressure medication as needed. If your blood pressure is ever above 160/90 and you are having symptoms, take one tab. Keep track of how often you have to use this medication and discuss th is with you primary doctor. Please return to the emergency department if you have any concerns. Referrals: TIFFANIE REYES MD (PCP) MUNIR VAUGHN DO Jan 04, 2025 11:19
== END 2025-01-04 11:26 | disposition home or self-care (01) ==
LOC: EDH 08:50
DX: I16.0 Hypertensive urgency (principal); I10 Essential (primary) hypertension; Z79.52 Long term (current) use of systemic steroids; Z79.82 Long term (current) use of aspirin; Z79.899 Other long term (current) drug therapy
CPT/HCPCS: 36415; 71045; 80048; 81001; 82550; 83880; 84484; 85025; 93005; 99285

== ENCOUNTER 2025-01-13 07:49 | Observation (INO) | payer MEDICARE ==
[~2025-01-13] VITALS: Ht 177.8 cm; Wt 94.8 kg
[~2025-01-13 07:49] MED LIST changes: +CLON0.2T PO
[2025-01-13 08:11] LABS: IMMATURE GRANULOCYTE ABSOLUTE 0.01 K/uL (0-1); NUCLEATED RED BLOOD CELLS 0.0 % (0.0-0.19); PLATELET COUNT (AUTO) 171 K/uL (130-400); RED BLOOD CELL COUNT(AUTO) 4.89 MIL/uL (4.50-6.20); RED CELL DISTRIBUTION WIDTH 15.0 % (11.0-15.5); WHITE BLOOD COUNT (AUTO) 5.2 K/uL (4.8-10.8)
--- NOTE | 2025-01-13 08:14 | EKG ---
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
[2025-01-13 08:20] LABS: CREATININE 1.3 mg/dL (0.5-1.3); GLOMERULAR FILTR. RATE CALC 56.0 mL/min (>90); GLUCOSE,RANDOM 142.0 mg/dL (70-105); SODIUM SERUM 141.0 mmol/L (136-145); UREA NITROGEN, BLOOD 18.0 mg/dL (7-18)
--- NOTE | 2025-01-13 08:54 | HMCIMG ---
EXAM: CR Chest, 1 View. CLINICAL HISTORY: Chest Pain COMPARISON: None provided. FINDINGS: LUNGS: There is no mass, infiltrate, or acute pulmonary abnormality. PLEURAL SPACES: No pleural effusion or pneumothorax. MEDIASTINUM: The cardiomediastinal silhouette is within normal limits. BONES: No aggressively appearing osseous lesion. IMPRESSION: No acute cardiopulmonary pathology is evident. /[place]
--- NOTE | 2025-01-13 08:58 | HMCIMG ---
EXAM: Non-contrast CT examination of the Brain CLINICAL HISTORY: Dizziness. TECHNIQUE: Thin collimated axial CT images of the brain were obtained, with sagittal and coronal reformatted images also submitted. CT scan done according to ALARA (As Low as Reasonably Achievable). CONTRAST USED: None. COMPARISON: None provided. FINDINGS: No acute intracranial abnormality is present. No acute cortical infarction, hemorrhage, mass, or mass effect. Ill-defined hypodensities in the bilateral cerebral white matter are suggestive of mild chronic ischemic changes secondary to small vessel disease. No hydrocephalus or abnormal extra-axial fluid collections. The posterior fossa is unremarkable. The skull base and calvarium are intact. The included portions of the paranasal sinuses and mastoid air cells are clear. IMPRESSION: No acute intracranial abnormality is present. Mild chronic ischemic changes secondary to small vessel disease. /Cost
--- NOTE | 2025-01-13 09:57 | ERN ---
General Chief Complaint: Dizzy/Light Headed Stated Complaint: VERTIGO,HEADACHE Time Seen by MD: 07:55 History of Present Illness Initial Comments 79-year-old male came in for dizziness and syncope. Patient denies any trauma with this episode. Patient otherwise has no concerns. Allergies: Coded Allergies: No Known Drug Allergies (Verified Allergy, Unknown, 11/14/19) omeprazole (Unverified Allergy, Unknown, 01/13/25) Home Meds Active Scripts Clonidine HCl (Clonidine HCl) 0.2 Mg Tablet, 1 TAB PO BID for blood pressure >160/100 for 10 Days, #30 TAB 0 Refills Prov:MUNIR VAUGHN 01/04/25 Reported Medications Prednisone (Prednisone) 20 Mg Tablet, 20 MG PO DAILY, TAB 11/06/24 [Voltaren Diclofenac] Unknown Strength No Conflict Check, TP 11/06/24 Gabapentin (Gabapentin) 100 Mg Capsule, 300 MG PO BID, CAP 11/06/24 Aspirin (ASPIRIN 81 MG ECTAB) 81 Mg Ectab, 81 MG PO DAILY, TAB.EC 11/06/24 Tamsulosin HCl (Flomax) 0.4 Mg Cap.er.24h, 0.4 MG PO DAILY, CAPSULE.DR 11/06/24 Montelukast Sodium (Montelukast Sodium) 10 Mg Tablet, 1 TAB PO DAILY for 30 Days, #30 TAB 0 Refills 11/06/24 Omeprazole (Omeprazole) 40 Mg Capsule.dr, 40 MG PO DAILY, CAP 11/06/24 Telmisartan/Amlodipine (Telmisartan-Amlodipine 80-5 mg) 80 Mg-5 Mg Tablet, 1 TAB PO DAILY for 30 Days, #30 TAB 0 Refills 11/06/24 Past Medical History Past Medical History: Hypertension, Prostatitis, Sinusitis Medical History Other: BACK PAIN, VERTIGO Past Surgical History: Other Surgical History Other: BILATERAL HIP SX, EYES Family History Family History: Negative Social History Social History: Negative ROS Dictation CONSTITUTIONAL: Negative except for HPI HEAD/FACE: Negative except for HPI EENT: Negative except for HPI RESPIRATORY: Negative except for HPI GASTROINTESTINAL/ABDOMINAL: Negative except for HPI GENITOURINARY: Negative except for HPI MUSCULOSKELETAL: Negative except for HPI INTEGUMENTARY: Negative except for HPI NEUROLOGICAL/PSYCH: Negative except for HPI HEMATOLOGIC/LYMPHATIC: Negative except for HPI All Systems Negative, Except as noted above. 13 point review of systems assessed and all negative except for above. Physical Exam Physical Exam Dictation Vital Signs reviewed General Appearance: Alert, oriented x 3, no acute distress, well developed, nourished. Head and Face: non-traumatic. Eyes: PERRL, pink conjunctivas, eyelid no trauma, anterior chamber with arcus senilis. Ears: Pinnas intact and no signs of trauma or erythema ear canals clear and no discharge TM no erythema Nose: No discharge, no bleeding. Oropharynx: Mouth normal, tongue pink, pharynx clear,no erythema, tonsils no exudates, no abscesses noted, mucous membrane moist Neck: Supple, non-tender, no thyromegaly, no masses, no JVD, no bruits Breast:Deferred Chest:No tenderness, no crepitus, no paradoxical movement, no retractions Lungs:Clear, well-ventilated, symmetric, no rales, no wheezing, no rhonchi, no stridor, good breath sounds bilaterally Heart: Regular rate, regular rhythm, no murmur, no gallops Vascular: no peripheral edema, Abdomen: Soft, positive bowel sounds, nondistended, no guarding, nontender, no rebound, no masses no hepatomegaly, no splenomegaly, no Clement's sign, no hernias. Rectal: Deferred Genital: Deferred Neurological: Normal speech, motor function intact, sensory function intact Musculoskeletal: Neck nontender, full range of motion, back nontender, full range of motion, Extremities: nontender, full range of motion Skin: Color pink, dry, no turgor, no rash, no lacerations, no abrasions, no contusions. Lymphatic: Deferred Results Laboratory and Microbiology Lab and Micro Result Laboratory Tests Test 01/13/25 08:05 White Blood Count 5.2 K/uL (4.8-10.8) Red Blood Count 4.89 MIL/uL (4.50-6.20) Hemoglobin 14.0 g/dL (14.0-18.0) Hematocrit 42.6 % (42-54) Mean Corpuscular Volume 87.1 fL (79-99) Mean Corpuscular Hemoglobin 28.6 pg (27.0-33.0) Mean Corpuscular Hemoglobin Concent 32.9 g/dL (32.0-36.0) Red Cell Distribution Width 15.0 % (11.0-15.5) Platelet Count 171 K/uL (130-400) Mean Platelet Volume 9.9 fL (7.5-10.5) Immature Granulocyte % (Auto) 0.2 % (0-1) Neutrophils (%) (Auto) 44.8 % (40.0-77.0) Lymphocytes (%) (Auto) 41.5 % (21.0-51.0) Monocytes (%) (Auto) 9.8 % (3.0-13.0) Eosinophils (%) (Auto) 2.9 % (0.0-8.0) Basophils (%) (Auto) 0.8 % (0.0-5.0) Neutrophils # (Auto) 2.4 K/uL (1.8-7.7) Lymphocytes # (Auto) 2.2 K/uL (1.0-4.8) Monocytes # (Auto) 0.5 K/uL (0.1-1.0) Eosinophils # (Auto) 0.15 K/uL (0.00-0.70) Basophils # (Auto) 0.04 K/uL (0.00-0.20) Absolute Immature Granulocyte (auto 0.01 K/uL (0-1) Nucleated Red Blood Cells 0.0 % (0.0-0.19) Sodium Level 141 mmol/L (136-145) Potassium Level 3.8 mmol/L (3.5-5.1) Chloride Level 107 mmol/L (101-111) Carbon Dioxide Level 22 mmol/L (21-32) Blood Urea Nitrogen 18 mg/dL (7-18) Creatinine 1.3 mg/dL (0.5-1.3) Glomerular Filtration Rate Calc 56 mL/min (>90) Random Glucose 142 mg/dL (70-105) H Total Calcium 9.0 mg/dL (8.5-10.1) Magnesium Level 1.90 mg/dL (1.80-2.40) Troponin I High Sensitivity 8 ng/L (4-75) B-Type Natriuretic Peptide 29 pg/mL (0-100) MDM MDM: Differential diagnosis: Rationale: Tests considered and ordered secondary to shared decision making include: Previous outside records reviewed: Old ER visits. Risk of complication and/or morbidity or mortality of patient management: None Medications-Per medication reconciliation Need for hospitalization: Patient does meet criteria for hospitalization. Need for emergency major/minor surgery: No There are no social concerns with this patient. Prescription drug management Prescriptions will include symptomatic care Patient's prior external medical records from other ER visits were reviewed by me as indicated. Prior testing and results from previous visits were reviewed. Prior tests were taken into account with medical decision making and resource utilization, independent historian/historians were used to obtain complete medical history. I independently interpreted the test that were performed, results were reviewed by me and considered findings on radiology if ordered. Medical management and examination interpretation discussions were had by me with other qualified healthcare professionals as indicated for the patient's care. ED Course Orders Procedure Category Date Status Time 12 Lead Ekg Tracing- EKG 01/13/25 Complete Technical 07:56 Cbc With Differential LAB 01/13/25 Complete 07:56 Basic Metabolic Panel LAB 01/13/25 Complete 07:56 Magnesium LAB 01/13/25 Complete 07:56 Troponin I High LAB 01/13/25 Complete Sensitivity 07:56 Chest 1vw RAD 01/13/25 Resulted 07:56 Ct Head/Brain W/O CT 01/13/25 Resulted Contrast 07:56 B-Type Natriuretic LAB 01/13/25 Complete Peptide 07:56 Vital Signs Date Time Temp Pulse Resp B/P (MAP) Pulse Ox O2 Delivery O2 Flow Rate FiO2 01/13/25 08:19 98.1 54 16 155/77 97 Room Air* 0 21 01/13/25 07:50 98.1 53 16 172/83 97 Room Air 0 DX & DISP Disposition: Inpatient Departure Impression: Primary Impression: Bradycardia Additional Impression: Dizziness Condition: Stable Referrals: TIFFANIE REYES MD (PCP) NARA HAN MD Jan 13, 2025 09:57
[2025-01-13] MEDS: 0.9%NACL 1000ML 1,000 ML IV SCH (10:52)
[2025-01-13 12:13] LABS: CREATINE KINASE, TOTAL 193.0 U/L (21-232)
--- NOTE | 2025-01-13 14:17 | NUR ---
DCP: [facility] met with pt and his sister Luz Marina Dietz [phone]. Pt reports he lives at home independently but he has a "friend" that comes over daily and assists him as needed.. 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 Pt states it should end this wk. PCP is [facility] Aparicio and uses [facility] for rx needs. Pt denies need for snf and states he will return home a dc. Addendum: 01/13/25 at 1426 by JAIMIE GEE Amended: Links added.
--- NOTE | 2025-01-13 14:47 | EKG ---
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
--- NOTE | 2025-01-13 15:00 | NUR ---
SPEECH TRIGGER COMPLETED / SYNCOPE Pt IS A 79 Y.O. MALE ADMITTED SECONDARY TO SYNCOPE AND BRADYCARDIA. Pt HAS A PAST MEDICAL HISTORY SIGNIFICANT FOR HTN, PROSTATITIS, AND SINUSITIS. PATIENT PRESENTED WITH NO PULMONARY INFILTRATES ON MOST RECENT CHEST X-RAY (01/13/2025). Pt CURRENTLY ON HEART HEALTHY DIET (REGULAR TEXTURE AND THIN LIQUIDS). PER NURSE CASTRO, Pt TOLERATING DIET WITH NO OVERT S/S OF ASPIRATION. PLEASE REQUEST SPEECH THERAPY SERVICES FOR SKILLED BEDSIDE SWALLOW EVALUATION IF Pt PRESENTS WITH +S/S OF ASPIRATION SUCH COUGH RESPONSE, THROAT CLEAR, OR WET VOCAL QUALITY DURING ORAL INTAKE. ALL QUESTIONS ANSWERED AT THIS TIME. Addendum: 01/13/[address] [facility]DA Amended: Links added.
--- NOTE | 2025-01-13 15:28 | NUR ---
REPORT GIVEN TO KAROLINE ANAND AT 1520 PT STABLE NO DISTRESS, VITALS WNL NO C/O PAIN. PT TAKEN IN STRETCHER WITH PERSONAL BELONGINGS.
[2025-01-13 15:35] VITALS: BP 157/75; PULSE 51; RESP 16; TEMP 97.9
[2025-01-13 16:00] VITALS: O2SAT 100
[2025-01-13 17:47] LABS: CREATINE KINASE, TOTAL 148.0 U/L (21-232)
--- NOTE | 2025-01-13 19:22 | CONS ---
We are consulted for evaluation of syncope and bradycardia, but the patient never experienced syncope. He was lying in his bed when he turned over and experienced the room spinning, became nauseated, and developed a headache. Headache has persisted and vertigo occurs intermittently, usually in association with change of position. Patient has experienced orthostatic lightheadedness in the past and has had vertigo in the past as well. Patient denies any previous history of heart failure, dyspnea, VT or stroke. He has no known history of cardiovascular issues apart from hypertension which has been treated for many years. He takes supplemental blood pressure medicine prn blood pressure greater than 160 systolic. ROS: Denies syncope or presyncope, brown outs or blackouts, palpitations, exertional weakness or dyspnea, chest pain or chest pressure, ulcers or GI bleeding, but admits to nausea. Admits to headache, denies focal weakness or sensory changes. PX: Patient is oriented and alert, conversant and appropriate. No JVD, normal carotid volume, no carotid bruits, no thyromegaly. Symmetric facial expressions and conjugate gaze, no focal weakness. Peripheral pulses intact. Chest is clear with no rales or rhonchi, nonlabored respiration. Normal S1 and S2. Integument intact. Impression: Echocardiogram is normal and bradycardia is limited to asymptomatic mild sinus bradycardia, not related to the vertigo the patient was admitted for. Plan: No further cardiac evaluation is recommended. Discharge approved. Patient History: Family history: Cardiovascular disease MOTHER (stroke), FATHER, BROTHER, Family history: Hypertension MOTHER (stroke), FATHER, BROTHER, SISTER Stroke MOTHER (stroke), FATHER, No Family History of: Cancer Chronic obstructive lung disease Family history: Alzheimer's disease Family history: Asthma Family history: Diabetes mellitus Immunocompromised state Vitals/Labs Vital Signs Date Time Temp Pulse Resp B/P (MAP) Pulse Ox O2 Delivery O2 Flow Rate FiO2 01/13/25 16:00 100 Room Air* 0 21 01/13/25 15:35 97.9 51 16 157/75 Laboratory Tests 01/13/25 08:05 Allergies: Coded Allergies: No Known Drug Allergies (Verified Allergy, Unknown, 11/14/19) omeprazole (Unverified Allergy, Unknown, 01/13/25) Medications Current Medications Sodium Chloride 1,000 ml @ 60 mls/hr [id number] IV Last administered on 01/13/25at 10:52; Start 01/13/25 at 10:30; Stop 02/12/25 at 10:29 Aspirin 81 mg DAILY PO; Start 01/14/25 at 09:00; Stop 02/13/25 at 08:59 Gabapentin 300 mg BID PO; Start 01/13/25 at 21:00; Stop 02/12/25 at 20:59 Montelukast Sodium 10 mg HS PO; Start 01/13/25 at 21:00; Stop 02/12/25 at 20:59 Prednisone 20 mg DAILY PO; Start 01/14/25 at 09:00; Stop 02/13/25 at 08:59 Tamsulosin HCl 0.4 mg HS PO; Start 01/13/25 at 21:00; Stop 02/12/25 at 20:59 Pantoprazole Sodium 40 mg DAILY PO; Start 01/14/25 at 09:00; Stop 02/13/25 at 08:59 Home Med (Telmisartan/ Amlodip... DAILY PO; Start 01/14/25 at 09:00; Stop 02/13/25 at 08:59 APURVA KAY MD Jan 13, 2025 19:22
--- NOTE | 2025-01-13 19:29 | HMCSR ---
APPROVED REPORT EXAM: Two-dimensional and M-mode echocardiogram with Doppler and color Doppler. Study Details: Previous echocardiogram: 11/06/24 INDICATION ICD: R55 Syncope 2D Dimensions RVDd4.0 cmLVEF(%)57.2 (>50%)LVED Vol(simp.)85.0 mL IVSd0.8 (0.7-1.1cm)FS(%)30 %LVES Vol(simp.)34.0 mL LVDd4.6 (3.8-5.6cm)LA (2D)4.1 (1.6-4.0cm)LVEF(%, simp.)60 % PWd1.1 (0.7-1.1cm)Ao Root(2D)3.6 (2.0-3.7cm)LA ESV INDEX (BP)26.26 mL/m2 IVSs1.0 cm LVDs3.2 (2.5-4.0cm) PWs1.0 cm Deformation Strain Apical 4-19.4 % Apical 2-19.5 % Apical 3-21.0 % Global Strain-20.0 % Aortic Valve AoV Vmax2.1 m/[place] GR16.9 mmHgLVOT Vmax1.5 m/s AoV VTI0.4 mAo Mean GR7.0 mmHgLVOT VTI0.27 m Mitral Valve MV E Vmax68.5 cm/sDECEL [id number] ms MV A Vmax66.2 cm/sP 1/2 T49 ms E/A ratio1.0MVA (PHT)4.5 cm2 TDI E/E' Tndaod57.3E/E' Lateral8.2 Medial E' Peak V5.56 cm/sLateral E' Peak V8.34 cm/s Tricuspid Valve TR Vmax2.6 m/sRAP (EST) 8 vnGuKFZI12.2 mmHg TR Peak GR27.2 mmHg Left Ventricle The left ventricle is normal size. There is normal LV segmental wall motion. There is normal left chastity tricular wall thickness. The LVEF is > 55%. 3D volume EF 60%. Left ventricular filling pattern is nor mal for age. Right Ventricle The right ventricle is normal size. The right ventricular systolic function is normal. Atria The left atrium size is normal. The right atrium size is normal. Aortic Valve The aortic valve is normal in structure. No aortic regurgitation is present. There is no aortic valvu lar stenosis. Mitral Valve The mitral valve is normal in structure. There is mild mitral valve regurgitation noted. There is no mitral valve stenosis. Tricuspid Valve The tricuspid valve is normal in structure. There is mild tricuspid valve regurgitation noted. Pulmonic Valve The pulmonary valve is normal in structure. There is no pulmonic valvular regurgitation. Great Vessels The aortic root is normal in size. IVC is not well visualized. Pericardium There is no pericardial effusion. Other Information Quality : Adequate Conclusion The LVEF is > 55%. 3D volume EF 60%.
[2025-01-13 20:00] VITALS: O2SAT 95
[2025-01-13 20:06] LABS: CREATINE KINASE, TOTAL 138.0 U/L (21-232)
[2025-01-13 20:07] VITALS: BP 127/80; PULSE 80; RESP 18; TEMP 98.6
[2025-01-13 23:38] VITALS: BP 141/54; PULSE 57; RESP 18; TEMP 98
[2025-01-14] VITALS (7 sets, daily range): BP systolic 119–143; BP diastolic 72–95; PULSE 44–67; RESP 16–18; TEMP 97.9–98.6; O2SAT 97
[2025-01-14 04:53] LABS: IMMATURE GRANULOCYTE ABSOLUTE 0.02 K/uL (0-1); NUCLEATED RED BLOOD CELLS 0.0 % (0.0-0.19); PLATELET COUNT (AUTO) 148 K/uL (130-400); RED BLOOD CELL COUNT(AUTO) 4.42 MIL/uL (4.50-6.20); RED CELL DISTRIBUTION WIDTH 15.1 % (11.0-15.5); WHITE BLOOD COUNT (AUTO) 4.9 K/uL (4.8-10.8)
[2025-01-14 05:07] LABS: CREATININE 1.2 mg/dL (0.5-1.3); GLOMERULAR FILTR. RATE CALC 62.0 mL/min (>90); GLUCOSE,RANDOM 102.0 mg/dL (70-105); SODIUM SERUM 142.0 mmol/L (136-145); UREA NITROGEN, BLOOD 17.0 mg/dL (7-18)
[2025-01-14 05:11] LABS: ASPARTATE AMINOTRANSFERASE 15.0 U/L (10-37); TOTAL PROTEIN, SERUM 6.5 g/dL (6.0-8.3)
--- NOTE | 2025-01-14 08:09 | HP ---
ADMITTING HISTORY AND PHYSICAL CHIEF COMPLAINT: Dizziness and syncope. HISTORY OF PRESENT ILLNESS: This is a 79-year-old gentleman who was brought to the Emergency Room with history of near syncopal episode. The patient has history of hypertension and BPH. The patient has no history of fever, no chills, no nausea, no vomiting. As the patient has above symptoms, the patient is going to be hospitalized at this time for further workup and treatment. PAST MEDICAL HISTORY: Significant for hypertension, prostatitis, sinusitis, lumbar pain, and previous history of vertigo. PAST SURGICAL HISTORY: Significant for bilateral hip surgeries. ALLERGIES: OMEPRAZOLE. MEDICATIONS: The patient takes clonidine 0.2 two times a day, prednisone 20 mg daily, gabapentin, aspirin, tamsulosin, and omeprazole. SOCIAL HISTORY: Denies history of smoking. No alcohol or substance use. FAMILY HISTORY: Noncontributory. REVIEW OF SYSTEMS: HEENT: Dizziness. CARDIOVASCULAR: No chest pain or palpitations. RESPIRATORY: Denies shortness of breath. GASTROINTESTINAL: Nausea. GENITOURINARY: Negative. MUSCULOSKELETAL: Joint pains. PHYSICAL EXAMINATION: GENERAL: The patient is awake, alert, and oriented to person, place, and time. VITAL SIGNS: Significant for blood pressure of 120/60, pulse 60, respirations 14. HEENT: Pupils are equal and reactive. Mucous membrane appears to be dry. NECK: Supple. LUNGS: Mostly decreased breath sounds. No wheezes or rhonchi. HEART: Regular rate and rhythm. ABDOMEN: Soft and nontender. LABORATORY DATA: Significant for WBCs of 2.2, hemoglobin is 14, platelet count 171. Potassium 3.8, sodium 141, BUN 18, creatinine 1.3, magnesium 1.9, and BNP 29. ASSESSMENT AND PLAN: * Bradycardia, dizziness. The patient's clonidine is going to be kept on hold at this time. Continue with telmisartan at this time and amlodipine. The patient is going to get echocardiogram, Cardiology consultation. * BPH. The patient is on tamsulosin also. If the patient continues to have bradycardia, the patient might need to be on hold on the tamsulosin. Continue with present treatment. The patient is going to get repeat labs in the morning. TID: [id number] RECEIPT: [id number]
[2025-01-14] MEDS: ASPIRIN 81 MG EC TAB PO SCH (08:53)
[2025-01-14] MEDS: TELMISARTAN PO SCH (08:59)
[2025-01-14] MEDS: AMLODIPINE PO SCH (08:59)
[2025-01-14] MEDS ORDERED: PHARMACY COMMUNICATION MISC SCH (15:00)
--- NOTE | 2025-01-14 17:25 | HMCIMG ---
EXAMINATION: DUPLEX ULTRASOUND EXAMINATION OF THE BILATERAL CAROTID AND VERTEBRAL ARTERIES. CLINICAL HISTORY: Stenosis. COMPARISON: None provided. TECHNIQUE: Real-time ultrasound scan of the bilateral carotid and vertebral arteries, 2-D grayscale, with color Doppler flow and spectral waveform analysis. FINDINGS: Color and spectral Doppler interrogation of the carotid vessels on the right demonstrate peak systolic velocities as follows: CCA (Proximal and distal): 69 and 41 cm/s respectively. ECA: 59 cm/s. ICA (Proximal, mid, and distal): 46, 68, and 61 cm/s respectively. Vertebral artery demonstrates antegrade flow: 41 cm/s. Right ICA/CCA ratio: 1.7 Peak systolic velocities on the left are as follows: CCA (Proximal and distal): 92 and 60 cm/s respectively. ECA: 51 cm/s. ICA (Proximal, mid, and distal): 42, 66, and 64 cm/s respectively. Vertebral artery demonstrates antegrade flow: 57 cm/s. Left ICA/CCA ratio: 1.1 Both the common carotid arteries and their branches reveal mild intimal thickening. IMPRESSION: Mild intimal thickening in the bilateral carotid arteries and their branches. There is no significant stenosis or flow limiting lesions. /[place]
[2025-01-14] MEDS: GABAPENTIN 300 MG CAPSULE PO SCH (20:19)
--- NOTE | 2025-01-14 22:28 | PN ---
SUBJECTIVE: The patient's dizziness and vertigo improving. The patient is cleared from the Cardiology. The patient is going to get an MRI and carotid ultrasound to complete neurological workup. OBJECTIVE: VITAL SIGNS: Blood pressure is 140/80, pulse is 60, respirations 16. LUNGS: Mostly decreased breath sounds. No wheezing or rhonchi. HEART: Regular rate and rhythm. ABDOMEN: Soft and nontender. Laboratory data is normal. ASSESSMENT AND PLAN: Vertigo, dizziness, near syncopal episode. The patient is going to get MRI of the brain and carotid ultrasound. Rest of the diagnoses including hypertension, stable. TID: [id number] RECEIPT: [id number] cc: .
[2025-01-15 04:11] VITALS: BP 127/60; PULSE 107; RESP 18; TEMP 98.6
[2025-01-15 07:39] VITALS: BP 138/81; PULSE 57; RESP 16; TEMP 98.2
--- NOTE | 2025-01-15 10:23 | HMCIMG ---
EXAM: MR Brain Without IV Contrast CLINICAL HISTORY: Discharge clearance. TECHNIQUE: Multiplanar multi-sequence MRI of the brain. CONTRAST: None. COMPARISON: CT brain dated 01/13/25. FINDINGS: Mild generalized brain atrophy. There are multiple discrete as well as confluent T2 and FLAIR hyperintensities in the subcortical and periventricular white matter of the bilateral cerebral hemispheres without restricted diffusion. Multiple prominent perivascular spaces in the bilateral basal ganglia. No evidence of acute cortical infarction, hemorrhage, mass or mass effect. The ventricular system is normal in size, shape, and contour. No hydrocephalus. Bilateral internal capsules and thalami are normal. The brainstem is normal. No abnormal extra-axial fluid collection is present. The marrow signal within the skull base and calvarium is intact. Mild bilateral maxillary sinusitis. Mild bilateral mastoiditis. IMPRESSION: No acute intracranial abnormality or mass. Mild generalized brain atrophy. Moderate chronic small vessel ischemic disease. Mild bilateral maxillary sinusitis and mild bilateral mastoiditis. No significant interval changes from the CT brain dated 01/13/25, within the limitations of cross-modality comparison. /[place]
[2025-01-15 11:30] VITALS: BP 138/86; PULSE 55; RESP 16; TEMP 97.9
[2025-01-15 12:50] VITALS: O2SAT 97
--- NOTE | 2025-01-15 21:34 | DS ---
ADMITTING DIAGNOSES: Dizziness, vertigo. OTHER DIAGNOSES: Hypertension, dehydration. DISCHARGE DIAGNOSES: Vertigo, dizziness, improved. MRI shows sinusitis, mastoiditis. Hypertension is stable. CONDITION AT THE TIME OF DISCHARGE: Stable. PROGNOSIS: Fair. DISCHARGE MEDICATIONS: Aspirin. FOLLOWUP: With the primary physician in 1 week time. HOSPITAL COURSE: The patient was hospitalized with a diagnosis of dizziness, vertigo, hypertension. The patient's hypertension is stable and vertigo, dizziness stabilized. MRI shows chronic white matter changes with sinusitis and mastoiditis. The patient is going to be taking aspirin. Dehydration, which is corrected; hypokalemia, corrected. TID: [id number] RECEIPT: [id number]
== END 2025-01-15 13:55 | disposition home or self-care (01) ==
LOC: EDH 07:49 → EDHIP 10:07 → UNDOADMOB 10:07 → INTOOBSV 10:07 → 2DH 15:54 → EDHIP 15:54 → 2DH 01-14 09:38 → OBSVTOIN 01-14 09:38 → INTOOBSV 01-14 09:38 → EDHIP 01-14 09:38
PROVIDERS: ADMIT Family Medicine; ATTEND Family Medicine
DX: R42 Dizziness and giddiness (principal); R00.1 Bradycardia, unspecified; N41.9 Inflammatory disease of prostate, unspecified; R55 Syncope and collapse; I10 Essential (primary) hypertension; E86.0 Dehydration; E87.6 Hypokalemia; R51.9 Headache, unspecified; J32.9 Chronic sinusitis, unspecified; M54.50 Low back pain, unspecified
CPT/HCPCS: 96360; 96361 ×3; 99285; 82550 ×3; 83735 ×2; 84484 ×4; 80048; 83880; 85025 ×2; 36415 ×2; 71045; 70450; 93306; 93356; 76376; 93005 ×2; 80053; 93880; 70551; G0378 ×28